=== PATIENT | male | born 1950 ===

== ENCOUNTER 2023-11-07 11:08 | Outpatient (OUT) | payer OTHER, SELFPAY ==
--- NOTE | 2023-11-07 | XR_ITS ---
[place] [id number] Patient Name: CYRUS RODRIGUEZ MRN: [id number] date: 1950 Sex: M Assigned Patient Location: [facility] Current Patient Location: [facility] Accession/Order Number: [id number] Exam Date: 11/07/2023 11:21 Report Date: 11/07/2023 12:25 At the request of: AUTUMN MENDIOLA Procedure: XR ankle LT min 3V EXAM: XR ankle LT min 3V HISTORY: LEFT ANKLE PAIN COMPARISON: None. TECHNIQUE: 3 views FINDINGS: No acute fracture or dislocation. Maintained ankle mortise. Minimal degenerative degenerative changes. Mild soft tissue swelling. XR/XR ankle LT min 3V IMPRESSION: Unremarkable exam. Electronically authenticated by: SUNNY ASHBY Date: 11/07/2023 12:25
== END 2023-11-07 11:09 | disposition home or self-care (01) ==
LOC: RAD 11:08
PROVIDERS: Visit Provider Podiatrist Foot & Ankle Surgery
DX: M19.072 Primary osteoarthritis, left ankle and foot (principal)
CPT/HCPCS: 73610

== ENCOUNTER 2023-11-26 16:01 | Outpatient (RCR) | payer OTHER, SELFPAY | END 2023-12-07 10:52 | disposition home or self-care (01) | LOC: PT 16:01 | PROVIDERS: Visit Provider Podiatrist Foot & Ankle Surgery | DX: M21.6X2 Other acquired deformities of left foot (principal); M77.32 Calcaneal spur, left foot; M76.62 Achilles tendinitis, left leg; M79.672 Pain in left foot | CPT/HCPCS: 97035; 97110; 97140; 97161 ==

== ENCOUNTER 2023-11-27 11:53 | Outpatient (OUT) | payer OTHER, SELFPAY ==
--- OUTSIDE RECORDS SUMMARY | 2023-11-27 12:01 | XMS_ITS | CCD ---
Author Name Unknown Address [address] [place] [address] Organization [facility] Care Team Providers Care Car Tracer Name Role Phone Mandy Dean Unavailable Unavailable Provider, None Unavailable Unavailable Madny Dean Unavailable Unavailable Kuns, Leroy Unavailable Kuns, DO Leroy Primary Care Provider [phone] Kuns, DO Leroy Attending Provider Kuns, DO Leroy Primary Care Provider [phone] Kuns, DO Leroy Attending Provider [phone] Kuns, DO Leroy Primary Care Provider Kuns, DO Leroy Attending Provider Kuns, Leroy Admitting Unavailable Kuns, Leroy Primary Care Unavailable Kuns, Leroy Attending Unavailable Kuns, Leroy Admitting Unavailable Kuns, Leroy Primary Care Unavailable Kuns, Leroy Attending Unavailable Kuns, Leroy Admitting Unavailable Kuns, Leroy Primary Care Unavailable Kuns, Leroy Attending Unavailable Kuns, Leroy Admitting Unavailable Kuns, Leroy Primary Care Unavailable Kuns, Leroy Attending Unavailable Kuns, Leroy Attending Unavailable Kuns, Leroy Admitting Unavailable Kuns, Leroy Primary Care Unavailable Allergies Allergy Classification Reported Allergen(s) Allergy Type Date of Onset Reaction(s) Facility (1 source) [place]; Translations: [[place]] Propensity to adverse reactions to drug (disorder) [facility] Repository Medications Current Medications Medication Drug Class(es) Dates Sig (Normalized) Sig (Original) atorvastatin 10 mg oral tablet (17 sources) HMG-CoA Reductase Inhibitor Start: 05-03-2020 take 1 tablet by mouth every twenty-four hours Atorvastatin Calcium 10 MG 1 tablet Orally Once a day Apr, Active Start: 05-03-2020 take 1 tablet by flaquito th every week Atorvastatin Calcium 10 MG 1 tablet Orally 2 days per week Apr, Active azithromycin 250 mg oral tablet (3 sources) Macrolide Antimicrobial Start: 12-18-2022 Zithromax Z-Anish 250 MG 2 tablets on the first day, then 1 tablet daily for 4 days Orally Once a day for 5 days Nov, Active brimonidine tartrate 2 mg/ml ophthalmic solution (6 sources) alpha-Adrenergic Agonist Start: 06-02-2019 take 1 drop(s) into the eye(s) twice daily Brimonidine Active 1 DROPS EYE-BOTH Twice daily June 01, 2019 11:00pm brimonidine tartrate 2 mg/ml / timolol 5 mg/ml ophthalmic solution (17 sources) alpha-Adrenergic Agonist, beta-Adrenergic Brennan take 1 drop(s) into the eye(s) twice daily Combigan 0.2-0.5 % 1 drop into affected eye Ophthalmic Twice a day Active cephalexin 500 mg oral capsule (1 source) Cephalosporin Antibacterial Start: 10-04-2023 take 1 capsule by mouth every eight hours Cephalexin 500 MG 1 capsule Orally TID for 10 days Sep, Active cetirizine hydrochloride 10 mg oral tablet (10 sources) Histamine-1 Receptor Antagonist take 1 tablet by mouth every twenty-four hours Cetirizine HCl 10 MG 1 tablet Orally Once a day Active ezetimibe 10 mg oral tablet (17 sources) Dietary Cholesterol Absorption Inhibitor Start: 08-26-2020 take 1 tablet by mouth every twenty-four hours Ezetimibe 10 MG 1 tablet Orally Once a day Aug, Active Start: 08-26-2020 take 1 tablet by [facility] two times weekly Ezetimibe 10 MG 1 tablet Orally 2 times per week Aug, Active fluticasone propionate 0.05 mg/actuat metered dose nasal spray (4 sources) Corticosteroid Start: 10-04-2022 take 1 spray(s) nasal route once daily Fluticasone Propionate 50 MCG/ACT 1 spray in each nostril Nasally Once a day for 30 day(s) Sep, Active gabapentin 300 mg oral capsule (15 sources) Anti-epileptic Agent Start: 12-29-2021 take 1 capsule by mouth at bedtime Gabapentin 300 MG 1 capsule Orally at bedtime for 90 days Dec, Active Start: 12-29-2021 take 1 capsule by mo [facility] once daily at bedtime Gabapentin 100 MG 1 capsule Orally QHS for 30 day(s) Dec, Active methylPREDNISolone 4 mg oral tablet (4 sources) Corticosteroid Start: 12-18-2022 methylPREDNISo lone 4 MG as directed Orally Nov, Active Start: 12-20-2021 Medrol 4 MG as directed Orally Dec, Active mupirocin 0.02 mg/mg topical ointment (1 source) RNA Synthetase Inhibitor Antibacterial Start: 10-04-2023 Mupirocin 2 % 1 application Externally Twice a day Sep, Active sulfamethoxazole 800 mg / trimethoprim 160 mg oral tablet (2 sources) Dihydrofolate Reductase Inhibitor Antibacterial, Sulfonamide Antimicrobial Start: 10-18-2023 take 1 tablet by mouth every twelve hours Bactrim DS 800-160 MG 1 tablet Orally BID for 10 days Sep, Active Start: 10-04-2023 take 1 tablet by flaquito every twelve hours Bactrim DS 800-160 MG 1 tablet Orally Twice a day for 10 days Sep, Active Timolol Maleate (6 sources) beta-Adrenergic Brennan Start: 06-02-2019 take 1 drop(s) into the eye(s) twice daily Timolol Maleate Active 1 DROPS EYE-BOTH Twice daily June 02, 2019 12:00am Start: 06-02-2019 take 1 drop(s) into the eye(s) twice daily Timolol Maleate Active 1 DROPS EYE-BOTH Twice daily June 01, 2019 11:00pm Completed/Discontinued Medications Medication Drug Class(es) Dates Sig (Normalized) Sig (Original) Toradol 30 mg/ml (20 sources) Start: 12-29-2021 Toradol 30 mg/ml Dec, 60 mg Start: 12-20-2021 Toradol 30 mg/ ml Dec, 2 mL Start: 09-27-2021 Toradol 30 mg/ ml Sep, 2 mL Problems Active Problems Problem Classification Problem Date Documented Da te Episodic/Chronic Disorders of lipid metabolism (20 sources) Hyperlipidemia; Translations: [Hyperlipidemia, unspecified] Onset: 09-27-2021 Resolved: 06-08-2022 Chronic Essential hypertension (8 sources) Hypertensive disorder; Translations: [Essential (primary) hypertension] Onset: 04-04-2023 Chronic Glaucoma (17 sources) Glaucoma; Translations: [Unspecified glaucoma] Chronic Immunizations and screening for infectious disease (9 sources) Needs influenza immunization; Translations: [Encounter for immunization] Episodic Open wounds of extremities (2 sources) Partial traumatic amputation of left foot, level unspecified, sequela; Translations: [Partial traumatic amputation of left foot, sequela] Chronic Open wounds of extremities (1 source) Unspecified open wound, unspecified foot, initial encounter Episodic Other circulatory disease (8 sources) Elevated blood pressure; Translations: [Elevated blood-pressure reading, without diagnosis of hypertension] Episodic Other circulatory disease (1 source) Elevated blood-pressure reading, without diagnosis of hypertension Episodic Other connective tissue disease (14 sources) Plantar fasciitis of right foot; Translations: [Plantar fascial fibromatosis] Episodic Other connective tissue disease (4 sources) Pain in right foot; Translations: [Pain in right foot] Episodic Other ear and sense organ disorders (15 sources) Bilateral tinnitus; Translations: [Tinnitus, bilateral] Episodic Other gastrointestinal disorders (6 sources) Stool DNA-based colorectal cancer screening positive; Translations: [Other fecal abnormalities] 06-05-2019 Episodic Other lower respiratory disease (2 sources) Cough; Translations: [Acute cough] Episodic Other non-traumatic joint disorders (15 sources) Multiple joint pain; Translations: [Pain in unspecified joint] Episodic Other non-traumatic joint disorders (2 sources) Ankle pain; Translations: [Pain in left ankle and joints of left foot] Episodic Other screening for suspected conditions (not mental disorders or infectious disease) (11 sources) Encounter for screening for malignant neoplasm of prostate; Translations: [Abnormal results of thyroid function studies] Onset: 09-27-2021 Resolved: 06-08-2022 Episodic Other upper respiratory disease (17 sources) Seasonal allergy; Translations: [Other seasonal allergic rhinitis] Chronic Other upper respiratory disease (3 sources) Other specified disorders of nose and nasal sinuses; Translations: [Other specified disorders of nose and nasal sinuses] Onset: 11-21-2023 Episodic Other upper respiratory disease (2 sources) Nasal sinus problem; Translations: [Other specified disorders of nose and nasal sinuses] Episodic Residual codes; unclassified (2 sources) Device used; Translations: [Presence of other specified devices] Episodic Spondylosis; intervertebral disc disorders; other back problems (20 sources) Lumbar spondylosis; Translations: [Spondylosis without myelopathy or radiculopathy, lumbar region] Onset: 09-27-2021 Resolved: 01-19-2022 Chronic Spondylosis; intervertebral disc disorders; other back problems (16 sources) Low back pain; Translations: [Lumbar back pain] Episodic Thyroid disorders (18 sources) Hypothyroidism; Translations: [Hypothyroidism, unspecified] Chronic Unclassified (1 source) Unspecified open wound, unspecified foot, initial encounter; Translations: [Unspecified open wound, unspecified foot, initial encounter] Onset: 10-04-2023 Past or Other Problems Problem Classification Problem Date Documented Da te Episodic/Chronic Diabetes mellitus without complication (1 source) Hyperglycemia, unspecified Onset: 09-27-2021 Resolved: 09-27-2021 Episodic Other connective tissue disease (1 source) Plantar fascial fibromatosis Onset: 12-20-2021 Resolved: 12-20-2021 Episodic Other connective tissue disease (2 sources) Pain in right foot Onset: 12-20-2021 Resolved: 12-29-2021 Episodic Other ear and sense organ disorders (1 source) Tinnitus, bilateral Onset: 12-29-2021 Resolved: 12-29-2021 Episodic Other non-traumatic joint disorders (2 sources) Pain in unspecified joint Onset: 12-29-2021 Resolved: 01-19-2022 Episodic Unclassified (7 sources) Lumbar back pain M54.50 Onset: 12-20-2021 Resolved: 06-08-2022 Unclassified (2 sources) Acute cough R05.1 Results Test Name Value Interpretation Reference Range Facility CT sinus wo conon 11-21-2023 CT sinus wo con [facility] [place] [address] CT Scan Report Signed Patient: Cyrus Rodriguez MR#: [id number] : 1950 Acct:[id number] Age/Sex: 72 / M ADM Date: 11/21/23 Loc: [facility] Room: Type: [facility] Attending Dr: Leroy Wray DO Copies to: Leroy Wray DO Ordering Provider: Leroy Wray DO Date of Service: 11/21/23 CT/CT sinus wo con: Sinus drainage CT PARANASAL SINUSES WITHOUT CONTRAST: CLINICAL HISTORY: Sinus drainage for years. COMPARISON: None TECHNIQUE: Contiguous axial unenhanced images were obtained through the paranasal sinuses. Coronal reconstructions were also performed. This CT exam was performed using one or more following dose reduction techniques: Automated exposure control, adjustment of the mA and/or kV according to patient size, or use of iterative reconstruction technique. FINDINGS: Frontal sinuses are absent. Ethmoid and sphenoid sinuses are clear. Minimal mucoperiosteal thickening involving the maxillary sinuses. Ostiomeatal complexes appear patent. No significant nasal septal deviation. No bony destruction is seen. Mastoid air cells are well pneumatized. No soft tissue swelling is seen. Intraorbital contents appear grossly unremarkable. Nasopharynx is grossly unremarkable. CT/CT sinus wo con IMPRESSION: MINIMAL MAXILLARY SINUS DISEASE. Impression dictated by: Camilo Dumas Jr., Ramila11/21/2023 11:21 AM Dictation Location: [place] [address] Transcribed By: [facility] 11/21/23 1121 Dictated By: Camilo Dumas Jr, DO 11/21/23 1120 Signed By: 11/21/23 1121 [facility] Bacterial blood cultureOrder ed By: Leroy Wray on 10-04-2023 Bacteria identified Cx Nom (Bld) NO GROWTH 5 DAYS [facility] Bacteria identified Cx Nom (Bld) NO GROWTH 5 DAYS [facility] Basophils Auto (Bld) [#/Vol] Ordered By: Leroy Wray on 10-04-2023 Basophils (Bld) [#/Vol] 0.0 10*3/uL 0.0-0.2 [facility] Basophils/100 WBC Auto (Bld) Ordered By: Lreoy Wray on 10-04-2023 Basophils/100 WBC (Bld) 0.7 % . [facility] Blood Cultureon 10-04-2023 Bacteria identified Cx Nom (Bld) Reason for Exam Wound of foot Blood Comment X 1 Reason for Exam: Wound of foot : Blood Comment: X 1 NO GROWTH 5 DAYS PERFORMED BY: [facility] [address] [place] [address] PATHOLOGIST SUPERVIS[employer] Y[employer] DARIO MILLER M.D. [facility] Comment on above: Performed By: #### C UBLD #### [facility] [address] Bacteria identified Cx Nom (Bld) Reason for Exam Wound of foot Blood Comment X 1 Reason for Exam: Wound of foot : Blood Comment: X 1 NO GROWTH 5 DAYS PERFORMED BY: [place] [address] PATHOLOGIST SUPERVIS[employer] Y[employer] DARIO MILLER M.D. Normal [facility] Comment on above: Performed By: #### C BC #### [facility] [address] [place] [address] COVID + FLU Quick Testingon 10-04-2023 SARS-CoV-2 (COVID-19) RNA JOLENE+probe Ql (Unsp spec) Negative [facility] [employer] Other COVID + FLU Quick Testing Negative [facility] [employer] Other Complete Blood Count Auto Di ffon 10-04-2023 Basophils (Bld) [#/Vol] 0.0 10*3/uL Normal 0.0-0.2 [facility] Comment on above: Order Comment: Reaso n for Exam Hyperlipidemia Result Comment: PERF ORMED BY: [place] [address] PATHOLOGIST SUPERVISOR [employer] Y[employer] DARIO MILLER M.D. Performed By: #### C BC #### [facility] [address] [place] [address] [place] Basophils/100 WBC (Bld) 0.7 % Normal . [facility] Comment on above: Order Comment: Reaso n for Exam Hyperlipidemia Performed By: #### C BC #### [facility] [address] [place] [address] [place] Eosinophils (Bld) [#/Vol] 0.3 10*3/uL Normal 0.0-0.45 [facility] Comment on above: Order Comment: Reaso n for Exam Hyperlipidemia Performed By: #### C BC #### [facility] [address] [place] [address] [place] Eosinophils/100 WBC (Bld) 4.4 % Normal . [facility] Comment on above: Order Comment: Reaso n for Exam Hyperlipidemia Performed By: #### C BC #### [address] Erythrocyte distribution width (RBC) [Ratio] 13.5 % Normal 12.0-14.8 [facility] Comment on above: Order Comment: Reaso n for Exam Hyperlipidemia Performed By: #### C BC #### [address] Hematocrit (Bld) [Volume fraction] 43.3 % Normal 38.8-50.0 [facility] Comment on above: Order Comment: Reaso n for Exam Hyperlipidemia Performed By: #### C BC #### [address] Hemoglobin (Bld) [Mass/Vol] 15.2 g/dL Normal 13.0-17.0 [facility] Comment on above: Order Comment: Reaso n for Exam Hyperlipidemia Performed By: #### C BC #### [address] Lymphocytes (Bld) [#/Vol] 1.8 10*3/uL Normal 1.00-4.8 [facility] Comment on above: Order Comment: Reaso n for Exam Hyperlipidemia Performed By: #### C BC #### [place] [address] [place] Lymphocytes/100 WBC (Bld) 25.3 % Normal . [facility] Comment on above: Order Comment: Reaso n for Exam Hyperlipidemia Performed By: #### C BC #### [place] [address] [place] MCH (RBC) [Entitic mass] 31.4 pg Normal 27.5-35.2 [facility] Comment on above: Order Comment: Reaso n for Exam Hyperlipidemia Performed By: #### C BC #### [address] MCV (RBC) [Entitic vol] 89.7 fL Normal 83.5-101 [facility] Comment on above: Order Comment: Reaso n for Exam Hyperlipidemia Performed By: #### C BC #### [address] Mean Corpuscular HGB Conc 35.1 g/dL Normal 32.5-35.6 [facility] Comment on above: Order Comment: Reaso n for Exam Hyperlipidemia Performed By: #### C BC #### [address] Monocytes (Bld) [#/Vol] 0.7 10*3/uL Normal 0.0-0.8 [facility] Comment on above: Order Comment: Reaso n for Exam Hyperlipidemia Performed By: #### C BC #### [address] Monocytes/100 WBC (Bld) 9.6 % Normal . [facility] Comment on above: Order Comment: Reaso n for Exam Hyperlipidemia Performed By: #### C BC #### [address] Neutrophils (Bld) [#/Vol] 4.2 10*3/uL Normal 1.8-7.7 [facility] Comment on above: Order Comment: Reaso n for Exam Hyperlipidemia Performed By: #### C BC #### [address] Neutrophils/100 WBC (Bld) 60.0 % Normal . [facility] Comment on above: Order Comment: Reaso n for Exam Hyperlipidemia Performed By: #### C BC #### [place] [address] [place] NRBC% 0.2 /100{WBC} Normal 0-0.5 [facility] Comment on above: Order Comment: Reaso n for Exam Hyperlipidemia Performed By: #### C BC #### [address] Platelet mean volume (Bld) [Entitic vol] 8.6 fL Normal 6.6-10.1 [facility] Comment on above: Order Comment: Reaso n for Exam Hyperlipidemia Performed By: #### C BC #### [address] Platelets (Bld) [#/Vol] 158 10*3/uL Normal 150-450 [facility] Comment on above: Order Comment: Reaso n for Exam Hyperlipidemia Performed By: #### C BC #### [facility] [address] RBC (Bld) [#/Vol] 4.83 10*6/uL Normal 3.90-5.60 [facility] Comment on above: Order Comment: Reaso n for Exam Hyperlipidemia Performed By: #### C BC #### [facility] [address] WBC (Bld) [#/Vol] 7.0 10*3/uL Normal 4.1-10.5 [facility] Comment on above: Order Comment: Reaso n for Exam Hyperlipidemia Performed By: #### C BC #### [facility] [address] Eosinophils Auto (Bld) [#/Vo l]Ordered By: Leroy Wray on 10-04-2023 Eosinophils (Bld) [#/Vol] 0.3 10*3/uL 0.0-0.45 [facility] Eosinophils/100 WBC Auto (Bl d)Ordered By: Leroy Wray on 10-04-2023 Eosinophils/100 WBC (Bld) 4.4 % . [facility] Erythrocyte distribution wid th Auto (RBC) [Ratio]Ordered By: Leroy Wray on 10-04-2023 Erythrocyte distribution width (RBC) [Ratio] 13.5 % 12.0-14.8 [facility] Hematocrit Auto (Bld) [Volum e fraction]Ordered By: Leroy Wray on 10-04-2023 Hematocrit (Bld) [Volume fraction] 43.3 % 38.8-50.0 [facility] Hemoglobin [Mass/volume] in BloodOrdered By: Leroy Wray on 10-04-2023 Hemoglobin (Bld) [Mass/Vol] 15.2 g/dL 13.0-17.0 [facility] Leukocytes [#/volume] correc navi for nucleated erythrocytes in Blood by Automated counOrdered By: Leroy Wray on 10-04-2023 WBC corrected for nucl RBC Auto (Bld) [#/Vol] 7.0 10*3/uL 4.1-10.5 [facility] Lymphocytes Auto (Bld) [#/Vo l]Ordered By: Leroy Wray on 10-04-2023 Lymphocytes (Bld) [#/Vol] 1.8 10*3/uL 1.00-4.8 [facility] Lymphocytes/100 WBC Auto (Bl d)Ordered By: Leroy Wray on 10-04-2023 Lymphocytes/100 WBC (Bld) 25.3 % . [facility] MCH Auto (RBC) [Entitic mass ]Ordered By: Leroy Wray on 10-04-2023 MCH (RBC) [Entitic mass] 31.4 pg 27.5-35.2 [facility] MCHC Auto (RBC) [Mass/Vol]Or dered By: Leroy Wray on 10-04-2023 MCHC (RBC) [Mass/Vol] 35.1 g/dL 32.5-35.6 [facility] MCV Auto (RBC) [Entitic vol] Ordered By: Leroy Wray on 10-04-2023 MCV (RBC) [Entitic vol] 89.7 fL 83.5-101 [facility] Monocytes Auto (Bld) [#/Vol] Ordered By: Leroy Wray on 10-04-2023 Monocytes (Bld) [#/Vol] 0.7 10*3/uL 0.0-0.8 [facility] Monocytes/100 WBC Auto (Bld) Ordered By: Leroy Wray on 10-04-2023 Monocytes/100 WBC (Bld) 9.6 % . [facility] Neutrophils Auto (Bld) [#/Vo l]Ordered By: Leroy Wray on 10-04-2023 Neutrophils (Bld) [#/Vol] 4.2 10*3/uL 1.8-7.7 [facility] Neutrophils/100 WBC Auto (Bl d)Ordered By: Leroy Wray on 10-04-2023 Neutrophils/100 WBC (Bld) 60.0 % . [facility] Nucleated erythrocytes [Pres ence] in Blood by Automated countOrdered By: Leroy Wray on 10-04-2023 Nucleated RBC Auto Ql (Bld) 0.2 /100{WBC} 0-0.5 [facility] Platelet mean volume Auto (B ld) [Entitic vol]Ordered By: Leroy Wray on 10-04-2023 Platelet mean volume (Bld) [Entitic vol] 8.6 fL 6.6-10.1 [facility] Platelets Auto (Bld) [#/Vol] Ordered By: Leroy Wray on 10-04-2023 Platelets (Bld) [#/Vol] 158 10*3/uL 150-450 [facility] RBC Auto (Bld) [#/Vol]Ordere d By: Leroy Wray on 10-04-2023 RBC (Bld) [#/Vol] 4.83 10*6/uL 3.90-5.60 [facility] RSVon 10-04-2023 RSV Ag IA Ql (Unsp spec) Negative [employer] Other WBC Auto (Bld) [#/Vol]Ordere d By: Leroy Wray on 10-04-2023 WBC (Bld) [#/Vol] 7.0 10*3/uL 4.1-10.5 [facility] Alanine aminotransferase [En zymatic activity/volume] in Serum or PlasmaOrdered By: Leroy Wray on 09-26-2023 ALT [Catalytic activity/Vol] 21 U/L 7-52 [facility] Albumin [Mass/volume] in Ser um or Plasma by Bromocresol green (BCG) dye binding methoOrdered By: Leroy Wray on 09-26-2023 Albumin BCG dye [Mass/Vol] 4.3 g/dL 3.5-5.7 [facility] Alkaline phosphatase [Enzyma tic activity/volume] in Serum or PlasmaOrdered By: Leroy Wray on 09-26-2023 ALP [Catalytic activity/Vol] 38 U/L 34-104 [facility] Aspartate aminotransferase [ Enzymatic activity/volume] in Serum or PlasmaOrdered By: Leroy Wray on 09-26-2023 AST [Catalytic activity/Vol] 15 U/L 13-39 [facility] Basophils Auto (Bld) [#/Vol] Ordered By: Leroy Wray on 09-26-2023 Basophils (Bld) [#/Vol] 0.1 10*3/uL 0.0-0.2 [facility] Basophils/100 WBC Auto (Bld) Ordered By: Leroy Wray on 09-26-2023 Basophils/100 WBC (Bld) 0.8 % . [facility] Bilirubin.total [Mass/volume ] in Serum or PlasmaOrdered By: Leroy Wray on 09-26-2023 Bilirubin [Mass/Vol] 0.8 mg/dL 0.3-1.0 [facility] Calcium [Mass/volume] in Ser um or PlasmaOrdered By: Leroy Wray on 09-26-2023 Calcium [Mass/Vol] 9.0 mg/dL 8.6-10.3 [facility] Carbon dioxide, total [Moles /volume] in Serum or PlasmaOrdered By: Leroy Wray on 09-26-2023 CO2 [Moles/Vol] 32.2 mmol/L 21.0-31.[address] [facility] Chloride [Moles/volume] in S adam or PlasmaOrdered By: Leroy Wray on 09-26-2023 Chloride [Moles/Vol] 109 mmol/L 98-107 [facility] Cholesterol [Mass/volume] in Serum or PlasmaOrdered By: Leroy Wray on 09-26-2023 Cholesterol [Mass/Vol] 185 mg/dL 140-200 [facility] Comment on above: Chol less than 200 m g/dl low riskChol 201-239 mg/dl borderline riskChol 240 mg/dl and greater high risk Cholesterol in LDL Calc [Mas s/Vol]Ordered By: Leroy Wray on 09-26-2023 Cholesterol in LDL [Mass/Vol] 122 mg/dL 0-100 [facility] Comment on above: LDL ATP III CLASSIFI CATIONLDL less than 100 mg/dL OptimalLDL 100-129 mg/dL Near or above optimalLDL 130-159 mg/dL Borderline highLDL 160-189 mg/dL HighLDL greater than 189 mg/dL Very high Cholesterol in VLDL Calc [Ma ss/Vol]Ordered By: Leroy Wray on 09-26-2023 Cholesterol in VLDL [Mass/Vol] 17 mg/dL [facility] Complete Blood Count Auto Di ffon 09-26-2023 Basophils (Bld) [#/Vol] 0.1 10*3/uL Normal 0.0-0.2 [facility] Comment on above: Order Comment: Reaso n for Exam Hyperlipidemia Result Comment: PERF ORMED BY: [place] [address] PATHOLOGIST SUPER[employer] DARIO MILLER M.D. Performed By: #### C BC #### [facility] [address] [place] [address] Basophils/100 WBC (Bld) 0.8 % Normal . [facility] Comment on above: Order Comment: Reaso n for Exam Hyperlipidemia Performed By: #### C BC #### [facility] [address] [place] [address] Eosinophils (Bld) [#/Vol] 0.3 10*3/uL Normal 0.0-0.45 [facility] Comment on above: Order Comment: Reaso n for Exam Hyperlipidemia Performed By: #### C BC #### [facility] [address] [place] [address] [place] Eosinophils/100 WBC (Bld) 4.2 % Normal . [facility] Comment on above: Order Comment: Reaso n for Exam Hyperlipidemia Performed By: #### C BC #### [facility] [address] [place] [address] [place] Erythrocyte distribution width (RBC) [Ratio] 13.7 % Normal 12.0-14.8 [facility] Comment on above: Order Comment: Reaso n for Exam Hyperlipidemia Performed By: #### C BC #### [facility] [address] [place] [address] [place] Hematocrit (Bld) [Volume fraction] 45.0 % Normal 38.8-50.0 [facility] Comment on above: Order Comment: Reaso n for Exam Hyperlipidemia Performed By: #### C BC #### [facility] [address] [place] [address] [place] Hemoglobin (Bld) [Mass/Vol] 15.6 g/dL Normal 13.0-17.0 [facility] Comment on above: Order Comment: Reaso n for Exam Hyperlipidemia Performed By: #### C BC #### [address] Lymphocytes (Bld) [#/Vol] 2.2 10*3/uL Normal 1.00-4.8 [facility] Comment on above: Order Comment: Reaso n for Exam Hyperlipidemia Performed By: #### C BC #### [address] Lymphocytes/100 WBC (Bld) 36.1 % Normal . [facility] Comment on above: Order Comment: Reaso n for Exam Hyperlipidemia Performed By: #### C BC #### [address] MCH (RBC) [Entitic mass] 31.4 pg Normal 27.5-35.2 [facility] Comment on above: Order Comment: Reaso n for Exam Hyperlipidemia Performed By: #### C BC #### [address] MCV (RBC) [Entitic vol] 90.7 fL Normal 83.5-101 [facility] Comment on above: Order Comment: Reaso n for Exam Hyperlipidemia Performed By: #### C BC #### [address] Mean Corpuscular HGB Conc 34.6 g/dL Normal 32.5-35.6 [facility] Comment on above: Order Comment: Reaso n for Exam Hyperlipidemia Performed By: #### C BC #### [address] Monocytes (Bld) [#/Vol] 0.5 10*3/uL Normal 0.0-0.8 [facility] Comment on above: Order Comment: Reaso n for Exam Hyperlipidemia Performed By: #### C BC #### [address] Monocytes/100 WBC (Bld) 7.5 % Normal . [facility] Comment on above: Order Comment: Reaso n for Exam Hyperlipidemia Performed By: #### C BC #### [facility] [address] [place] [address] [place] Neutrophils (Bld) [#/Vol] 3.1 10*3/uL Normal 1.8-7.7 [facility] Comment on above: Order Comment: Reaso n for Exam Hyperlipidemia Performed By: #### C BC #### [facility] [address] [place] [address] [place] Neutrophils/100 WBC (Bld) 51.4 % Normal . [facility] Comment on above: Order Comment: Reaso n for Exam Hyperlipidemia Performed By: #### C BC #### [facility] [address] NRBC% 0.2 /100{WBC} Normal 0-0.5 [facility] Comment on above: Order Comment: Reaso n for Exam Hyperlipidemia Performed By: #### C BC #### [address] Platelet mean volume (Bld) [Entitic vol] 8.7 fL Normal 6.6-10.1 [facility] Comment on above: Order Comment: Reaso n for Exam Hyperlipidemia Performed By: #### C BC #### [place] [address] [place] Platelets (Bld) [#/Vol] 170 10*3/uL Normal 150-450 [facility] Comment on above: Order Comment: Reaso n for Exam Hyperlipidemia Performed By: #### C BC #### [place] [address] [place] RBC (Bld) [#/Vol] 4.97 10*6/uL Normal 3.90-5.60 [facility] Comment on above: Order Comment: Reaso n for Exam Hyperlipidemia Performed By: #### C BC #### [address] WBC (Bld) [#/Vol] 6.0 10*3/uL Normal 4.1-10.5 [facility] Comment on above: Order Comment: Reaso n for Exam Hyperlipidemia Performed By: #### C BC #### [facility] [address] Comprehensive Metabolic Pane igor 09-26-2023 Albumin [Mass/Vol] 4.3 g/dL Normal 3.5-5.7 [facility] Comment on above: Order Comment: Reaso n for Exam Hyperlipidemia Performed By: #### T SH3, LIPID, CMP #### [facility] [address] [place] [address] Albumin/Globulin [Mass ratio] 2.0 {ratio} Normal [facility] Comment on above: Order Comment: Reaso n for Exam Hyperlipidemia Performed By: #### T SH3, LIPID, CMP #### [facility] [address] [place] [address] ALP [Catalytic activity/Vol] 38 U/L Normal 34-104 [facility] Comment on above: Order Comment: Reaso n for Exam Hyperlipidemia Performed By: #### T SH3, LIPID, CMP #### [facility] [address] [place] [address] ALT [Catalytic activity/Vol] 21 U/L Normal 7-52 [facility] Comment on above: Order Comment: Reaso n for Exam Hyperlipidemia Performed By: #### T SH3, LIPID, CMP #### [facility] [address] [place] [address] Anion gap [Moles/Vol] 8.8 mmol/L Normal 6.0-15.0 [facility] Comment on above: Order Comment: Reaso n for Exam Hyperlipidemia Performed By: #### T SH3, LIPID, CMP #### [facility] [address] [place] [address] AST [Catalytic activity/Vol] 15 U/L Normal 13-39 [facility] Comment on above: Order Comment: Reaso n for Exam Hyperlipidemia Performed By: #### T SH3, LIPID, CMP #### [facility] [address] [place] [address] Bilirubin [Mass/Vol] 0.8 mg/dL Normal 0.3-1.0 [facility] Comment on above: Order Comment: Reaso n for Exam Hyperlipidemia Performed By: #### T SH3, LIPID, CMP #### [facility] [address] [place] [id number] [place] Calcium [Mass/Vol] 9.0 mg/dL Normal 8.6-10.3 [facility] Comment on above: Order Comment: Reaso n for Exam Hyperlipidemia Performed By: #### T SH3, LIPID, CMP #### [facility] [address] [place] [address] [place] Chloride [Moles/Vol] 109 mmol/L High 98-107 [facility] Comment on above: Order Comment: Reaso n for Exam Hyperlipidemia Performed By: #### T SH3, LIPID, CMP #### [facility] [address] [place] [address] [place] CO2 [Moles/Vol] 32.2 mmol/L High 21.0-31.[address] [facility] Comment on above: Order Comment: Reaso n for Exam Hyperlipidemia Performed By: #### T SH3, LIPID, CMP #### [facility] [address] Creatinine [Mass/Vol] 0.94 mg/dL Normal 0.70-1.30 [facility] Comment on above: Order Comment: Reaso n for Exam Hyperlipidemia Performed By: #### T SH3, LIPID, CMP #### [facility] [address] [place] [address] [place] GFR/1.73 sq M.predicted MDRD (S/P/Bld) [Vol rate/Area] mL/min/{1.73_m2} [facility] Comment on above: Order Comment: Reaso n for Exam Hyperlipidemia Performed By: #### T SH3, LIPID, CMP #### [facility] [address] [place] [address] [place] Globulin (S) [Mass/Vol] 2.2 g/dL [facility] Comment on above: Order Comment: Reaso n for Exam Hyperlipidemia Performed By: #### T SH3, LIPID, CMP #### [facility] [address] [place] [address] [place] Glucose [Mass/Vol] 101 mg/dL High 70-100 [facility] Comment on above: Order Comment: Reaso n for Exam Hyperlipidemia Result Comment: [facility] Glucose Reference Range is dependent on time and content of last meal. Glucose of more than 200 mg/dL in a nonstressed, ambulatory subject supports the diagnosis of Diabetes Mellitus. ADA recommended reference range Performed By: #### T SH3, LIPID, CMP #### [facility] [address] Potassium [Moles/Vol] 4.0 mmol/L Normal 3.5-5.1 [facility] Comment on above: Order Comment: Reaso n for Exam Hyperlipidemia Performed By: #### T SH3, LIPID, CMP #### [facility] [address] Protein [Mass/Vol] 6.5 g/dL Normal 6.4-8.9 [facility] Comment on above: Order Comment: Reaso n for Exam Hyperlipidemia Performed By: #### T SH3, LIPID, CMP #### [facility] [address] [place] [address] [place] Sodium [Moles/Vol] 146 mmol/L High 136-145 [facility] Comment on above: Order Comment: Reaso n for Exam Hyperlipidemia Performed By: #### T SH3, LIPID, CMP #### [facility] [address] Urea nitrogen [Mass/Vol] 13 mg/dL Normal 7-25 [facility] Comment on above: Order Comment: Reaso n for Exam Hyperlipidemia Performed By: #### T SH3, LIPID, CMP #### [facility] [address] [place] [address] [place] Creatinine [Mass/volume] in Serum or PlasmaOrdered By: Leroy Wray on 09-26-2023 Creatinine [Mass/Vol] 0.94 mg/dL 0.70-1.30 [facility] Eosinophils Auto (Bld) [#/Vo l]Ordered By: Leroy Wray on 09-26-2023 Eosinophils (Bld) [#/Vol] 0.3 10*3/uL 0.0-0.45 [facility] Eosinophils/100 WBC Auto (Bl d)Ordered By: Leroy Wray on 09-26-2023 Eosinophils/100 WBC (Bld) 4.2 % . [facility] Erythrocyte distribution wid th Auto (RBC) [Ratio]Ordered By: Leroy Wray on 09-26-2023 Erythrocyte distribution width (RBC) [Ratio] 13.7 % 12.0-14.8 [facility] Globulin Calc (S) [Mass/Vol] Ordered By: Leroy Wray on 09-26-2023 Globulin (S) [Mass/Vol] 2.2 g/dL [facility] Glucose [Mass/volume] in Ser um or PlasmaOrdered By: Leroy Wray on 09-26-2023 Glucose [Mass/Vol] 101 mg/dL 70-100 [facility] Comment on above: ADA recommended refe rence rangeRandom Glucose Reference Range is dependent on time and content of last meal. Glucose of more than 200 mg/dL in a nonstressed, ambulatory subject supports the diagnosis of Diabetes Mellitus. Hematocrit Auto (Bld) [Volum e fraction]Ordered By: Leroy Wray on 09-26-2023 Hematocrit (Bld) [Volume fraction] 45.0 % 38.8-50.0 [facility] Hemoglobin [Mass/volume] in BloodOrdered By: Leroy Wray on 09-26-2023 Hemoglobin (Bld) [Mass/Vol] 15.6 g/dL 13.0-17.0 [facility] Leukocytes [#/volume] correc navi for nucleated erythrocytes in Blood by Automated counOrdered By: Leroy Wray on 09-26-2023 WBC corrected for nucl RBC Auto (Bld) [#/Vol] 6.0 10*3/uL 4.1-10.5 [facility] Lipid Panelon 09-26-2023 Cholesterol [Mass/Vol] 185 mg/dL Normal 140-200 [facility] Comment on above: Order Comment: Reaso n for Exam Hyperlipidemia Result Comment: Chol less than 200 mg/dl low risk Chol 201-239 mg/dl borderline risk Chol 240 mg/dl and greater high risk Performed By: #### T SH3, LIPID, CMP #### [facility] [address] Cholesterol in HDL [Mass/Vol] 45 mg/dL Normal 23-92 [facility] Comment on above: Order Comment: Reaso n for Exam Hyperlipidemia Result Comment: HDL CHOL ATP-III CLASSIFICATION Cardiovascular Risk HDL > or equal to 60 mg/dL LOW HDL < 40 mg/dL HIGH Performed By: #### T SH3, LIPID, CMP #### [facility] [address] [place] [id number] [facility] Cholesterol.total/Cho lesterol in HDL [Mass ratio] 4.1 {ratio} Normal <5.0 [facility] Comment on above: Order Comment: Reaso n for Exam Hyperlipidemia Performed By: #### T SH3, LIPID, CMP #### [facility] [address] LDL Cholesterol,Calculate d 122 mg/dL High 0-100 [facility] Comment on above: Order Comment: Reaso n for Exam Hyperlipidemia Result Comment: LDL ATP III CLASSIFICATION LDL less than 100 mg/dL Optimal LDL 100-129 mg/dL Near or above optimal LDL 130-159 mg/dL Borderline high LDL 160-189 mg/dL High LDL greater than 189 mg/dL Very high Performed By: #### T SH3, LIPID, CMP #### [facility] [address] Triglyceride w/Reflex 88 mg/dL Normal 0-149 [facility] Comment on above: Order Comment: Reaso n for Exam Hyperlipidemia Result Comment: TRIG ATP III CLASSIFICATION TRIG less than 150 mg/dL Normal TRIG 150-199 mg/dL Borderline high TRIG 200-500 mg/dL High TRIG greater than 500 mg/dL Very high Standard traceable to the Center for Disease Conrtrol and Prevention (CDC) test method. Performed By: #### T SH3, LIPID, CMP #### [facility] [address] VLDL CHOLESTEROL 17 mg/dL Normal [facility] Comment on above: Order Comment: Reaso n for Exam Hyperlipidemia Performed By: #### T SH3, LIPID, CMP #### [facility] [address] [place] [id number] [place] Lymphocytes Auto (Bld) [#/Vo l]Ordered By: Leroy Wray on 09-26-2023 Lymphocytes (Bld) [#/Vol] 2.2 10*3/uL 1.00-4.8 [facility] Lymphocytes/100 WBC Auto (Bl d)Ordered By: Leroy Wray on 09-26-2023 Lymphocytes/100 WBC (Bld) 36.1 % . [facility] MCH Auto (RBC) [Entitic mass ]Ordered By: Leroy Wray on 09-26-2023 MCH (RBC) [Entitic mass] 31.4 pg 27.5-35.2 [facility] MCHC Auto (RBC) [Mass/Vol]Or dered By: Leroy Wray on 09-26-2023 MCHC (RBC) [Mass/Vol] 34.6 g/dL 32.5-35.6 [facility] MCV Auto (RBC) [Entitic vol] Ordered By: Leroy Wray on 09-26-2023 MCV (RBC) [Entitic vol] 90.7 fL 83.5-101 [facility] Monocytes Auto (Bld) [#/Vol] Ordered By: Leroy Wray on 09-26-2023 Monocytes (Bld) [#/Vol] 0.5 10*3/uL 0.0-0.8 [facility] Monocytes/100 WBC Auto (Bld) Ordered By: Leroy Wray on 09-26-2023 Monocytes/100 WBC (Bld) 7.5 % . [facility] Neutrophils Auto (Bld) [#/Vo l]Ordered By: Leroy Wray on 09-26-2023 Neutrophils (Bld) [#/Vol] 3.1 10*3/uL 1.8-7.7 [facility] Neutrophils/100 WBC Auto (Bl d)Ordered By: Leroy Wray on 09-26-2023 Neutrophils/100 WBC (Bld) 51.4 % . [facility] No Panel InformationOrdered By: Leroy Wray on 09-26-2023 Estimated GFR (CKD-EPI) > 60.0 mL/Min [facility] Creatinine Clearance (Chem N/A [facility] Nucleated erythrocytes [Pres ence] in Blood by Automated countOrdered By: Leroy Wray on 09-26-2023 Nucleated RBC Auto Ql (Bld) 0.2 /100{WBC} 0-0.5 [facility] PSA Screen (Yearly Only)on 1 11-27-2022 PSA Screen (Yearly Only) 0.110 ng/mL Normal 0.000-4.00 0 [facility] Comment on above: Order Comment: Reaso n for Exam Screening for prostate cancer Is patient <50 yrs? Medicare does not pay <50.: N What is the date of the last PSA Screen?: 594012 Is Medicare the insurance?: Y Did you verify eligibility (Dx Time) check TestViewGp: YES TO ALL Result Comment: PERF ORMED BY: [place] [address] PATHOLOGIST [employer] DARIO MILLER M.D. Performed By: #### P SAS #### [address] Platelet mean volume Auto (B ld) [Entitic vol]Ordered By: Leroy Wray on 09-26-2023 Platelet mean volume (Bld) [Entitic vol] 8.7 fL 6.6-10.1 [facility] Platelets Auto (Bld) [#/Vol] Ordered By: Leroy Wray on 09-26-2023 Platelets (Bld) [#/Vol] 170 10*3/uL 150-450 [facility] Potassium [Moles/volume] in Serum or PlasmaOrdered By: Leroy Wray on 09-26-2023 Potassium [Moles/Vol] 4.0 mmol/L 3.5-5.1 [facility] Prostate specific Ag [Mass/v olume] in Serum or PlasmaOrdered By: Leroy Wray on 09-26-2023 Prostate specific Ag [Mass/Vol] 0.110 ng/mL 0.000-4.00 0 [facility] Protein [Mass/volume] in Ser um or PlasmaOrdered By: Leroy Wray on 09-26-2023 Protein [Mass/Vol] 6.5 g/dL 6.4-8.9 [facility] RBC Auto (Bld) [#/Vol]Ordere d By: Leroy Wray on 09-26-2023 RBC (Bld) [#/Vol] 4.97 10*6/uL 3.90-5.60 [facility] Serum or plasma albumin/glob ulin mass ratioOrdered By: Leroy Wray on 09-26-2023 Albumin/Globulin [Mass ratio] 2.0 {ratio} [facility] Serum or plasma anion gap de terminationOrdered By: Leroy Wray on 09-26-2023 Anion gap [Moles/Vol] 8.8 mmol/L 6.0-15.0 [facility] Serum or plasma high density lipoprotein (HDL) cholesterol measurementOrdered By: Leroy Wray on 09-26-2023 Cholesterol in HDL [Mass/Vol] 45 mg/dL 23-92 [facility] Comment on above: HDL CHOL ATP-III CLA SSIFICATION Cardiovascular RiskHDL > or equal to 60 mg/dL LOWHDL < 40 mg/dL HIGH Serum or plasma total choles terol/high density lipoprotein (HDL) cholesterol mass ratOrdered By: Leroy Wray on 09-26-2023 Cholesterol.total/Cho lesterol in HDL [Mass ratio] 4.1 {ratio} <5.0 [facility] Sodium [Moles/volume] in Ser um or PlasmaOrdered By: Leroy Wray on 09-26-2023 Sodium [Moles/Vol] 146 mmol/L 136-145 [facility] Thyroid Stimulating Hormoneo n 09-26-2023 TSH Qn 5.69 m[IU]/L High 0.45-5.33 [facility] Comment on above: Order Comment: Reaso n for Exam Hyperlipidemia Result Comment: PERF ORMED BY: [place] [address] PATHOLOGIST [employer] D[employer] MILLER M.D. Performed By: #### T SH3, LIPID, CMP #### [address] Thyrotropin [Units/volume] i n Serum or PlasmaOrdered By: Leroy Wray on 09-26-2023 TSH Qn 5.69 m[IU]/L 0.45-5.33 [facility] Triglyceride [Mass/volume] i n Serum or PlasmaOrdered By: Leroy Wray on 09-26-2023 Triglyceride [Mass/Vol] 88 mg/dL 0-149 [facility] Comment on above: TRIG ATP III CLASSIF ICATIONTRIG less than 150 mg/dL NormalTRIG 150-199 mg/dL Borderline highTRIG 200-500 mg/dL High TRIG greater than 500 mg/dL Very highStandard traceable to the Center for Disease Conrtrol and Prevention (CDC) test method. Urea nitrogen [Mass/volume] in Serum or PlasmaOrdered By: Leroy Wray on 09-26-2023 Urea nitrogen [Mass/Vol] 13 mg/dL 7-25 [facility] WBC Auto (Bld) [#/Vol]Ordere d By: Leroy Wray on 09-26-2023 WBC (Bld) [#/Vol] 6.0 10*3/uL 4.1-10.5 [facility] Thyroid Antibodies TPO+Tg Ab on 04-04-2023 Antithyroglobulin Ab <1.0 Normal 0.0-0.9 [facility] Comment on above: Order Comment: Reaso n for Exam Hypertension, unspecified type Result Comment: Thyr oglobulin Antibody measured by [employer] Methodology Performed at: [employer] [facility] [address] [id number] Saw Boss: Ashok Leahy PhD, Phone: [phone] PERFORMED BY: [place] [address] PATHOLOGIST SUPER[employer] D[employer] MILLER M.D. Performed By: #### T HY AB #### [facility] , #### TSH3 #### [facility] [address] [place] [address] Thyroid Peroxidase Antibodies <9 Normal 0-34 [facility] Comment on above: Order Comment: Reaso n for Exam Hypertension, unspecified type Performed By: #### T HY AB #### [facility] , #### TSH3 #### [facility] [address] [place] [address] Thyroid Stimulating Hormoneo n 04-04-2023 TSH Qn 4.43 m[IU]/L Normal 0.45-5.33 [facility] Comment on above: Order Comment: Reaso n for Exam Hypertension, unspecified type Result Comment: PERF ORMED BY: [facility] [address] [place] [address] PATHOLOGIST SUPER[employer] DARIO MILLER M.D. Performed By: #### T HY AB #### [facility] , #### TSH3 #### [address] Thyrotropin [Units/volume] i n Serum or PlasmaOrdered By: Leroy Wray on 04-04-2023 TSH Qn 4.43 m[IU]/L 0.45-5.33 [facility] Alanine aminotransferase [En zymatic activity/volume] in Serum or PlasmaOrdered By: Leroy Wray on 03-26-2023 ALT [Catalytic activity/Vol] 26 U/L 7-52 [facility] Albumin [Mass/volume] in Ser um or Plasma by Bromocresol green (BCG) dye binding methoOrdered By: Leroy Wray on 03-26-2023 Albumin BCG dye [Mass/Vol] 4.2 g/dL 3.5-5.7 [facility] Alkaline phosphatase [Enzyma tic activity/volume] in Serum or PlasmaOrdered By: Leroy Wray on 03-26-2023 ALP [Catalytic activity/Vol] 41 U/L 34-104 [facility] Aspartate aminotransferase [ Enzymatic activity/volume] in Serum or PlasmaOrdered By: Leroy Wray on 03-26-2023 AST [Catalytic activity/Vol] 16 U/L 13-39 [facility] Basophils Auto (Bld) [#/Vol] Ordered By: Leroy Wray on 03-26-2023 Basophils (Bld) [#/Vol] 0.0 10*3/uL 0.0-0.2 [facility] Basophils/100 WBC Auto (Bld) Ordered By: Leroy Wray on 03-26-2023 Basophils/100 WBC (Bld) 0.8 % . [facility] Bilirubin.total [Mass/volume ] in Serum or PlasmaOrdered By: Leroy Wray on 03-26-2023 Bilirubin [Mass/Vol] 0.9 mg/dL 0.3-1.0 [facility] Calcium [Mass/volume] in Ser um or PlasmaOrdered By: Leroy Wray on 03-26-2023 Calcium [Mass/Vol] 8.5 mg/dL 8.6-10.3 [facility] Carbon dioxide, total [Moles /volume] in Serum or PlasmaOrdered By: Leroy Wary on 03-26-2023 CO2 [Moles/Vol] 32.1 mmol/L 21.0-31.[address] [facility] Chloride [Moles/volume] in S adam or PlasmaOrdered By: Leroy Wray on 03-26-2023 Chloride [Moles/Vol] 107 mmol/L 98-107 [facility] Cholesterol [Mass/volume] in Serum or PlasmaOrdered By: Leroy Wray on 03-26-2023 Cholesterol [Mass/Vol] 179 mg/dL 140-200 [facility] Comment on above: Chol less than 200 m g/dl low riskChol 201-239 mg/dl borderline riskChol 240 mg/dl and greater high risk Cholesterol in LDL Calc [Mas s/Vol]Ordered By: Leroy Wray on 03-26-2023 Cholesterol in LDL [Mass/Vol] 118 mg/dL 0-100 [facility] Comment on above: LDL ATP III CLASSIFI CATIONLDL less than 100 mg/dL OptimalLDL 100-129 mg/dL Near or above optimalLDL 130-159 mg/dL Borderline highLDL 160-189 mg/dL HighLDL greater than 189 mg/dL Very high Cholesterol in VLDL Calc [Ma ss/Vol]Ordered By: Leroy Wray on 03-26-2023 Cholesterol in VLDL [Mass/Vol] 24 mg/dL [facility] Complete Blood Count Auto Di ffon 03-26-2023 Basophils (Bld) [#/Vol] 0.0 10*3/uL Normal 0.0-0.2 [facility] Comment on above: Order Comment: Reaso n for Exam Hyperlipidemia Result Comment: PERF ORMED BY: [place] [address] PATHOLOGIST SUPER[employer] DARIO MILLER M.D. Performed By: #### C BC #### [facility] [address] [place] [address] [place] Basophils/100 WBC (Bld) 0.8 % Normal . [facility] Comment on above: Order Comment: Reaso n for Exam Hyperlipidemia Performed By: #### C BC #### [facility] [address] Eosinophils (Bld) [#/Vol] 0.2 10*3/uL Normal 0.0-0.45 [facility] Comment on above: Order Comment: Reaso n for Exam Hyperlipidemia Performed By: #### C BC #### [facility] [address] [place] [address] [place] Eosinophils/100 WBC (Bld) 3.3 % Normal . [facility] Comment on above: Order Comment: Reaso n for Exam Hyperlipidemia Performed By: #### C BC #### [facility] [address] Erythrocyte distribution width (RBC) [Ratio] 13.9 % Normal 12.0-14.8 [facility] Comment on above: Order Comment: Reaso n for Exam Hyperlipidemia Performed By: #### C BC #### [facility] [address] [place] [address] [place] Hematocrit (Bld) [Volume fraction] 44.6 % Normal 38.8-50.0 [facility] Comment on above: Order Comment: Reaso n for Exam Hyperlipidemia Performed By: #### C BC #### [facility] [address] [place] [id number] [place] Hemoglobin (Bld) [Mass/Vol] 15.2 g/dL Normal 13.0-17.0 [facility] Comment on above: Order Comment: Reaso n for Exam Hyperlipidemia Performed By: #### C BC #### [facility] [address] [place] [id number] [place] Lymphocytes (Bld) [#/Vol] 2.5 10*3/uL Normal 1.00-4.8 [facility] Comment on above: Order Comment: Reaso n for Exam Hyperlipidemia Performed By: #### C BC #### [facility] [address] [place] [id number] [place] Lymphocytes/100 WBC (Bld) 41.4 % Normal . [facility] Comment on above: Order Comment: Reaso n for Exam Hyperlipidemia Performed By: #### C BC #### [address] MCH (RBC) [Entitic mass] 31.3 pg Normal 27.5-35.2 [facility] Comment on above: Order Comment: Reaso n for Exam Hyperlipidemia Performed By: #### C BC #### [address] MCV (RBC) [Entitic vol] 91.3 fL Normal 83.5-101 [facility] Comment on above: Order Comment: Reaso n for Exam Hyperlipidemia Performed By: #### C BC #### [address] Mean Corpuscular HGB Conc 34.2 g/dL Normal 32.5-35.6 [facility] Comment on above: Order Comment: Reaso n for Exam Hyperlipidemia Performed By: #### C BC #### [address] Monocytes (Bld) [#/Vol] 0.4 10*3/uL Normal 0.0-0.8 [facility] Comment on above: Order Comment: Reaso n for Exam Hyperlipidemia Performed By: #### C BC #### [address] Monocytes/100 WBC (Bld) 7.3 % Normal . [facility] Comment on above: Order Comment: Reaso n for Exam Hyperlipidemia Performed By: #### C BC #### [place] [address] [place] Neutrophils (Bld) [#/Vol] 2.9 10*3/uL Normal 1.8-7.7 [facility] Comment on above: Order Comment: Reaso n for Exam Hyperlipidemia Performed By: #### C BC #### [place] [address] [place] Neutrophils/100 WBC (Bld) 47.2 % Normal . [facility] Comment on above: Order Comment: Reaso n for Exam Hyperlipidemia Performed By: #### C BC #### [facility] [address] NRBC% 0.3 /100{WBC} Normal 0-0.5 [facility] Comment on above: Order Comment: Reaso n for Exam Hyperlipidemia Performed By: #### C BC #### [address] Platelet mean volume (Bld) [Entitic vol] 8.4 fL Normal 6.6-10.1 [facility] Comment on above: Order Comment: Reaso n for Exam Hyperlipidemia Performed By: #### C BC #### [address] Platelets (Bld) [#/Vol] 160 10*3/uL Normal 150-450 [facility] Comment on above: Order Comment: Reaso n for Exam Hyperlipidemia Performed By: #### C BC #### [address] RBC (Bld) [#/Vol] 4.88 10*6/uL Normal 3.90-5.60 [facility] Comment on above: Order Comment: Reaso n for Exam Hyperlipidemia Performed By: #### C BC #### [address] WBC (Bld) [#/Vol] 6.1 10*3/uL Normal 4.1-10.5 [facility] Comment on above: Order Comment: Reaso n for Exam Hyperlipidemia Performed By: #### C BC #### [address] Comprehensive Metabolic Pane igor 03-26-2023 Albumin [Mass/Vol] 4.2 g/dL Normal 3.5-5.7 [facility] Comment on above: Order Comment: Reaso n for Exam Hyperlipidemia Performed By: #### C BC #### [address] Albumin/Globulin [Mass ratio] 2.0 {ratio} Normal [facility] Comment on above: Order Comment: Reaso n for Exam Hyperlipidemia Performed By: #### C BC #### [facility] [address] [place] [id number] [facility] ALP [Catalytic activity/Vol] 41 U/L Normal 34-104 [facility] Comment on above: Order Comment: Reaso n for Exam Hyperlipidemia Performed By: #### C BC #### [facility] [address] [place] [id number] [facility] ALT [Catalytic activity/Vol] 26 U/L Normal 7-52 [facility] Comment on above: Order Comment: Reaso n for Exam Hyperlipidemia Performed By: #### C BC #### [facility] [address] Anion gap [Moles/Vol] 8.7 mmol/L Normal 6.0-15.0 [facility] Comment on above: Order Comment: Reaso n for Exam Hyperlipidemia Performed By: #### C BC #### [facility] [address] AST [Catalytic activity/Vol] 16 U/L Normal 13-39 [facility] Comment on above: Order Comment: Reaso n for Exam Hyperlipidemia Performed By: #### C BC #### [facility] [address] [place] [address] [place] Bilirubin [Mass/Vol] 0.9 mg/dL Normal 0.3-1.0 [facility] Comment on above: Order Comment: Reaso n for Exam Hyperlipidemia Performed By: #### C BC #### [facility] [address] [place] [id number] [place] Calcium [Mass/Vol] 8.5 mg/dL Low 8.6-10.3 [facility] Comment on above: Order Comment: Reaso n for Exam Hyperlipidemia Performed By: #### C BC #### [facility] [address] [place] [id number] [place] Chloride [Moles/Vol] 107 mmol/L Normal 98-107 [facility] Comment on above: Order Comment: Reaso n for Exam Hyperlipidemia Performed By: #### C BC #### [facility] [address] [place] [address] [place] CO2 [Moles/Vol] 32.1 mmol/L High 21.0-31.[address] [facility] Comment on above: Order Comment: Reaso n for Exam Hyperlipidemia Performed By: #### C BC #### [facility] [address] Creatinine [Mass/Vol] 0.81 mg/dL Normal 0.70-1.30 [facility] Comment on above: Order Comment: Reaso n for Exam Hyperlipidemia Performed By: #### C BC #### [place] [address] [place] GFR/1.73 sq M.predicted MDRD (S/P/Bld) [Vol rate/Area] mL/min/{1.73_m2} [facility] Comment on above: Order Comment: Reaso n for Exam Hyperlipidemia Performed By: #### C BC #### [address] Globulin (S) [Mass/Vol] 2.1 g/dL [facility] Comment on above: Order Comment: Reaso n for Exam Hyperlipidemia Performed By: #### C BC #### [address] Glucose [Mass/Vol] 96 mg/dL Normal 70-100 [facility] Comment on above: Order Comment: Reaso n for Exam Hyperlipidemia Result Comment: [place] Glucose Reference Range is dependent on time and content of last meal. Glucose of more than 200 mg/dL in a nonstressed, ambulatory subject supports the diagnosis of Diabetes Mellitus. ADA recommended reference range Performed By: #### C BC #### [facility] [address] [place] [address] [place] Potassium [Moles/Vol] 3.8 mmol/L Normal 3.5-5.1 [facility] Comment on above: Order Comment: Reaso n for Exam Hyperlipidemia Performed By: #### C BC #### [place] [address] [place] Protein [Mass/Vol] 6.3 g/dL Low 6.4-8.9 [facility] Comment on above: Order Comment: Reaso n for Exam Hyperlipidemia Performed By: #### C BC #### [facility] [address] [place] [id number] [place] Sodium [Moles/Vol] 144 mmol/L Normal 136-145 [facility] Comment on above: Order Comment: Reaso n for Exam Hyperlipidemia Performed By: #### C BC #### [facility] [address] [place] [id number] [place] Urea nitrogen [Mass/Vol] 18 mg/dL Normal 7-25 [facility] Comment on above: Order Comment: Reaso n for Exam Hyperlipidemia Performed By: #### C BC #### [facility] [address] [place] [id number] [place] Creatinine [Mass/volume] in Serum or PlasmaOrdered By: Leroy Wray on 03-26-2023 Creatinine [Mass/Vol] 0.81 mg/dL 0.70-1.30 [facility] Eosinophils Auto (Bld) [#/Vo l]Ordered By: Leroy Wray on 03-26-2023 Eosinophils (Bld) [#/Vol] 0.2 10*3/uL 0.0-0.45 [facility] Eosinophils/100 WBC Auto (Bl d)Ordered By: Leroy Wray on 03-26-2023 Eosinophils/100 WBC (Bld) 3.3 % . [facility] Erythrocyte distribution wid th Auto (RBC) [Ratio]Ordered By: Leroy Wray on 03-26-2023 Erythrocyte distribution width (RBC) [Ratio] 13.9 % 12.0-14.8 [facility] Globulin Calc (S) [Mass/Vol] Ordered By: Leroy Wray on 03-26-2023 Globulin (S) [Mass/Vol] 2.1 g/dL [facility] Glucose [Mass/volume] in Ser um or PlasmaOrdered By: Leroy Wray on 03-26-2023 Glucose [Mass/Vol] 96 mg/dL 70-100 [facility] Comment on above: ADA recommended refe rence rangeRandom Glucose Reference Range is dependent on time and content of last meal. Glucose of more than 200 mg/dL in a nonstressed, ambulatory subject supports the diagnosis of Diabetes Mellitus. Hematocrit Auto (Bld) [Volum e fraction]Ordered By: Leroy Wray on 03-26-2023 Hematocrit (Bld) [Volume fraction] 44.6 % 38.8-50.0 [facility] Hemoglobin [Mass/volume] in BloodOrdered By: Leroy Wray on 03-26-2023 Hemoglobin (Bld) [Mass/Vol] 15.2 g/dL 13.0-17.0 [facility] Leukocytes [#/volume] correc navi for nucleated erythrocytes in Blood by Automated counOrdered By: Leroy Wray on 03-26-2023 WBC corrected for nucl RBC Auto (Bld) [#/Vol] 6.1 10*3/uL 4.1-10.5 [facility] Lipid Panelon 03-26-2023 Cholesterol [Mass/Vol] 179 mg/dL Normal 140-200 [facility] Comment on above: Order Comment: Reaso n for Exam Hyperlipidemia Result Comment: Chol less than 200 mg/dl low risk Chol 201-239 mg/dl borderline risk Chol 240 mg/dl and greater high risk Performed By: #### C BC #### [facility] [address] [place] [address] [place] Cholesterol in HDL [Mass/Vol] 37 mg/dL Normal 23-92 [facility] Comment on above: Order Comment: Reaso n for Exam Hyperlipidemia Result Comment: HDL CHOL ATP-III CLASSIFICATION Cardiovascular Risk HDL > or equal to 60 mg/dL LOW HDL < 40 mg/dL HIGH Performed By: #### C BC #### [facility] [address] [place] [address] [place] Cholesterol.total/Cho lesterol in HDL [Mass ratio] 4.8 {ratio} Normal <5.0 [facility] Comment on above: Order Comment: Reaso n for Exam Hyperlipidemia Performed By: #### C BC #### [facility] [address] [place] [address] [place] LDL Cholesterol,Calculate d 118 mg/dL High 0-100 [facility] Comment on above: Order Comment: Reaso n for Exam Hyperlipidemia Result Comment: LDL ATP III CLASSIFICATION LDL less than 100 mg/dL Optimal LDL 100-129 mg/dL Near or above optimal LDL 130-159 mg/dL Borderline high LDL 160-189 mg/dL High LDL greater than 189 mg/dL Very high Performed By: #### C BC #### [facility] [address] Triglyceride w/Reflex 121 mg/dL Normal 0-149 [facility] Comment on above: Order Comment: Reaso n for Exam Hyperlipidemia Result Comment: TRIG ATP III CLASSIFICATION TRIG less than 150 mg/dL Normal TRIG 150-199 mg/dL Borderline high TRIG 200-500 mg/dL High TRIG greater than 500 mg/dL Very high Standard traceable to the Center for Disease Conrtrol and Prevention (CDC) test method. Performed By: #### C BC #### [facility] [address] VLDL CHOLESTEROL 24 mg/dL Normal [facility] Comment on above: Order Comment: Reaso n for Exam Hyperlipidemia Performed By: #### C BC #### [facility] [address] [place] [id number] [facility] Lymphocytes Auto (Bld) [#/Vo l]Ordered By: Leroy Wray on 03-26-2023 Lymphocytes (Bld) [#/Vol] 2.5 10*3/uL 1.00-4.8 [facility] Lymphocytes/100 WBC Auto (Bl d)Ordered By: Leroy Wray on 03-26-2023 Lymphocytes/100 WBC (Bld) 41.4 % . [facility] MCH Auto (RBC) [Entitic mass ]Ordered By: Leroy Wray on 03-26-2023 MCH (RBC) [Entitic mass] 31.3 pg 27.5-35.2 [facility] MCHC Auto (RBC) [Mass/Vol]Or dered By: Leroy Wray on 03-26-2023 MCHC (RBC) [Mass/Vol] 34.2 g/dL 32.5-35.6 [facility] MCV Auto (RBC) [Entitic vol] Ordered By: Leroy Wray on 03-26-2023 MCV (RBC) [Entitic vol] 91.3 fL 83.5-101 [facility] Monocytes Auto (Bld) [#/Vol] Ordered By: Leroy Wray on 03-26-2023 Monocytes (Bld) [#/Vol] 0.4 10*3/uL 0.0-0.8 [facility] Monocytes/100 WBC Auto (Bld) Ordered By: Leroy Wray on 03-26-2023 Monocytes/100 WBC (Bld) 7.3 % . [facility] Neutrophils Auto (Bld) [#/Vo l]Ordered By: Leroy Wray on 03-26-2023 Neutrophils (Bld) [#/Vol] 2.9 10*3/uL 1.8-7.7 [facility] Neutrophils/100 WBC Auto (Bl d)Ordered By: Leroy Wray on 03-26-2023 Neutrophils/100 WBC (Bld) 47.2 % . [facility] No Panel InformationOrdered By: Leroy Wray on 03-26-2023 Estimated GFR (CKD-EPI) > 60.0 mL/Min [facility] Creatinine Clearance (Chem N/A [facility] Nucleated erythrocytes [Pres ence] in Blood by Automated countOrdered By: Leroy Wray on 03-26-2023 Nucleated RBC Auto Ql (Bld) 0.3 /100{WBC} 0-0.5 [facility] Platelet mean volume Auto (B ld) [Entitic vol]Ordered By: Leroy Wray on 03-26-2023 Platelet mean volume (Bld) [Entitic vol] 8.4 fL 6.6-10.1 [facility] Platelets Auto (Bld) [#/Vol] Ordered By: Leroy Wray on 03-26-2023 Platelets (Bld) [#/Vol] 160 10*3/uL 150-450 [facility] Potassium [Moles/volume] in Serum or PlasmaOrdered By: Leroy Wray on 03-26-2023 Potassium [Moles/Vol] 3.8 mmol/L 3.5-5.1 [facility] Protein [Mass/volume] in Ser um or PlasmaOrdered By: Leroy Wray on 03-26-2023 Protein [Mass/Vol] 6.3 g/dL 6.4-8.9 [facility] RBC Auto (Bld) [#/Vol]Ordere d By: Leroy Wray on 06-05-2023 RBC (Bld) [#/Vol] 4.88 10*6/uL 3.90-5.60 [facility] Serum or plasma albumin/glob ulin mass ratioOrdered By: Leroy Wray on 03-26-2023 Albumin/Globulin [Mass ratio] 2.0 {ratio} [facility] Serum or plasma anion gap de terminationOrdered By: Leory Wray on 03-26-2023 Anion gap [Moles/Vol] 8.7 mmol/L 6.0-15.0 [facility] Serum or plasma high density lipoprotein (HDL) cholesterol measurementOrdered By: Leroy Wray on 03-26-2023 Cholesterol in HDL [Mass/Vol] 37 mg/dL 23-92 [facility] Comment on above: HDL CHOL ATP-III CLA SSIFICATION Cardiovascular RiskHDL > or equal to 60 mg/dL LOWHDL < 40 mg/dL HIGH Serum or plasma total choles terol/high density lipoprotein (HDL) cholesterol mass ratOrdered By: Leroy Wray on 03-26-2023 Cholesterol.total/Cho lesterol in HDL [Mass ratio] 4.8 {ratio} <5.0 [facility] Sodium [Moles/volume] in Ser um or PlasmaOrdered By: Leroy Wray on 03-26-2023 Sodium [Moles/Vol] 144 mmol/L 136-145 [facility] Thyroid Stimulating Hormoneo n 03-26-2023 TSH Qn 7.60 m[IU]/L High 0.45-5.33 [facility] Comment on above: Order Comment: Reaso n for Exam Hyperlipidemia Result Comment: PERF ORMED BY: [place] [address] PATHOLOGIST [employer] DARIO MILLER M.D. Performed By: #### C #### [address] Thyrotropin [Units/volume] i n Serum or PlasmaOrdered By: Leroy Wray on 03-26-2023 TSH Qn 7.60 m[IU]/L 0.45-5.33 [facility] Triglyceride [Mass/volume] i n Serum or PlasmaOrdered By: Leroy Wray on 03-26-2023 Triglyceride [Mass/Vol] 121 mg/dL 0-149 [facility] Comment on above: TRIG ATP III CLASSIF ICATIONTRIG less than 150 mg/dL NormalTRIG 150-199 mg/dL Borderline highTRIG 200-500 mg/dL High TRIG greater than 500 mg/dL Very highStandard traceable to the Center for Disease Conrtrol and Prevention (CDC) test method. Urea nitrogen [Mass/volume] in Serum or PlasmaOrdered By: Leroy Wray on 03-26-2023 Urea nitrogen [Mass/Vol] 18 mg/dL 7-25 [facility] WBC Auto (Bld) [#/Vol]Ordere d By: Leroy Wray on 03-26-2023 WBC (Bld) [#/Vol] 6.1 10*3/uL 4.1-10.5 [facility] COVID + FLU Quick Testingon 12-18-2022 SARS-CoV-2 (COVID-19) RNA JOLENE+probe Ql (Unsp spec) Negative [facility] [employer] Other COVID + FLU Quick Testing Negative [facility] [employer] Other RSVon 12-18-2022 RSV Ag IA Ql (Unsp spec) Negative [facility] [employer] Other Basophils Auto (Bld) [#/Vol] Ordered By: Leroy Wray on 09-12-2022 Basophils (Bld) [#/Vol] 0.0 10*3/uL 0.0-0.2 [facility] Basophils/100 WBC Auto (Bld) Ordered By: Leroy Wray on 09-12-2022 Basophils/100 WBC (Bld) 0.7 % . [facility] Body fluid albumin measureme nt (mass/volume)Ordered By: Leroy Wray on 09-12-2022 Albumin (Body fld) [Mass/Vol] 3.8 g/dL 3.2-5.5 [facility] Cholesterol [Mass/volume] in Serum or PlasmaOrdered By: Leroy Wray on 09-12-2022 Cholesterol [Mass/Vol] 165 mg/dL 140-200 [facility] Comment on above: Chol less than 200 m g/dl low riskChol 201-239 mg/dl borderline riskChol 240 mg/dl and greater high risk Cholesterol in LDL Calc [Mas s/Vol]Ordered By: Leroy Wray on 09-12-2022 Cholesterol in LDL [Mass/Vol] 111 mg/dL 0-100 [facility] Comment on above: LDL ATP III CLASSIFI CATIONLDL less than 100 mg/dL OptimalLDL 100-129 mg/dL Near or above optimalLDL 130-159 mg/dL Borderline highLDL 160-189 mg/dL HighLDL greater than 189 mg/dL Very high Cholesterol in VLDL Calc [Ma ss/Vol]Ordered By: Leroy Wray on 09-12-2022 Cholesterol in VLDL [Mass/Vol] 19 mg/dL [facility] Creatinine and Glomerular fi ltration rate.predicted panel (S/P/Bld)Ordered By: Leroy Wray on 09-12-2022 Creatinine [Mass/Vol] 0.95 mg/dL 0.64-1.27 [facility] Eosinophils Auto (Bld) [#/Vo l]Ordered By: Leroy Wray on 09-12-2022 Eosinophils (Bld) [#/Vol] 0.2 10*3/uL 0.0-0.45 [facility] Eosinophils/100 WBC Auto (Bl d)Ordered By: Leroy Wray on 09-12-2022 Eosinophils/100 WBC (Bld) 4.1 % . [facility] Erythrocyte distribution wid th Auto (RBC) [Ratio]Ordered By: Leroy Wray on 09-12-2022 Erythrocyte distribution width (RBC) [Ratio] 13.8 % 12.0-14.8 [facility] Estimated glomerular filtrat ion rate (GFR) non- AmericanOrdered By: Leroy Wray on 09-12-2022 GFR/1.73 sq M.predicted among non-blacks MDRD (S/P/Bld) [Vol rate/Area] > 60 mL/Min [facility] Globulin Calc (S) [Mass/Vol] Ordered By: Leroy Wray on 09-12-2022 Globulin (S) [Mass/Vol] 2.3 g/dL [facility] Hematocrit Auto (Bld) [Volum e fraction]Ordered By: Leroy Wray on 09-12-2022 Hematocrit (Bld) [Volume fraction] 45.9 % 38.8-50.0 [facility] Hemoglobin [Mass/volume] in BloodOrdered By: Leroy Wray on 09-12-2022 Hemoglobin (Bld) [Mass/Vol] 15.3 g/dL 13.0-17.0 [facility] Laboratory - Hematology and Cell countsOrdered By: Leroy Wray on 09-12-2022 Nucleated RBC/100 WBC (Bld) [Ratio] 0.1 % 0-0.5 [facility] Leukocytes [#/volume] in Blo od by Automated countOrdered By: Leroy Wray on 09-12-2022 WBC (Bld) [#/Vol] 5.6 10*3/uL 4.5-11.0 [facility] Lymphocytes Auto (Bld) [#/Vo l]Ordered By: Leroy Wray on 09-12-2022 Lymphocytes (Bld) [#/Vol] 2.1 10*3/uL 1.00-4.8 [facility] Lymphocytes/100 WBC Auto (Bl d)Ordered By: Leroy Wray on 09-12-2022 Lymphocytes/100 WBC (Bld) 37.3 % . [facility] MCH Auto (RBC) [Entitic mass ]Ordered By: Leroy Wray on 09-12-2022 MCH (RBC) [Entitic mass] 30.6 pg 27.5-35.2 [facility] MCHC Auto (RBC) [Mass/Vol]Or dered By: Leroy Wray on 09-12-2022 MCHC (RBC) [Mass/Vol] 33.3 g/dL 32.5-35.6 [facility] MCV Auto (RBC) [Entitic vol] Ordered By: Leroy Wray on 09-12-2022 MCV (RBC) [Entitic vol] 91.9 fL 83.5-101 [facility] Monocytes Auto (Bld) [#/Vol] Ordered By: Leroy Wray on 09-12-2022 Monocytes (Bld) [#/Vol] 0.4 10*3/uL 0.0-0.8 [facility] Monocytes/100 WBC Auto (Bld) Ordered By: Leroy Wray on 09-12-2022 Monocytes/100 WBC (Bld) 7.7 % . [facility] Neutrophils Auto (Bld) [#/Vo l]Ordered By: Leroy Wray on 09-12-2022 Neutrophils (Bld) [#/Vol] 2.8 10*3/uL 1.8-7.7 [facility] Neutrophils/100 WBC Auto (Bl d)Ordered By: Leroy Wray on 09-12-2022 Neutrophils/100 WBC (Bld) 50.2 % . [facility] No Panel InformationOrdered By: Leroy Wray on 09-12-2022 Estimated GFR () > 60 mL/Min [facility] Comment on above: GFR estimated refere nce range: According to KDOQI guidelines, <60 ml/min/1.73m2 is sufficient to diagnose a patient with chronic kidney disease. Pharmacy Creatinine Clearance (Chem N/A [facility] Prostate Specific Antigen Screen 0.090 ng/mL 0.000-4.00 0 [facility] Platelet mean volume Auto (B ld) [Entitic vol]Ordered By: Leroy Wray on 09-12-2022 Platelet mean volume (Bld) [Entitic vol] 8.6 fL 6.6-10.1 [facility] Platelets Auto (Bld) [#/Vol] Ordered By: Leroy Wray on 09-12-2022 Platelets (Bld) [#/Vol] 177 10*3/uL 150-450 [facility] Protein [Mass/volume] in Ser um or PlasmaOrdered By: Leroy Wray on 09-12-2022 Protein [Mass/Vol] 6.1 g/dL 6.1-7.9 [facility] RBC Auto (Bld) [#/Vol]Ordere d By: Leroy Wray on 09-12-2022 RBC (Bld) [#/Vol] 4.99 10*6/uL 3.90-5.60 [facility] Serum or plasma alanine grewal otransferase measurement without P-5'-P (enzymatic activiOrdered By: Leroy Wray on 09-12-2022 ALT No additional P-5'-P [Catalytic activity/Vol] 25 U/L 10-60 [facility] Serum or plasma albumin/glob ulin mass ratioOrdered By: Leroy Wray on 09-12-2022 Albumin/Globulin [Mass ratio] 1.7 {ratio} [facility] Serum or plasma alkaline kosta sphatase measurement (enzymatic activity/volume)Ordered By: Leroy Wray on 09-12-2022 ALP [Catalytic activity/Vol] 36 U/L 32-92 [facility] Serum or plasma anion gap de terminationOrdered By: Leroy Wray on 09-12-2022 Anion gap [Moles/Vol] 14.7 mmol/L 6.0-15.0 [facility] Serum or plasma aspartate am inotransferase measurement (enzymatic activity/volume)Ordered By: Leroy Wray on 09-12-2022 AST [Catalytic activity/Vol] 18 U/L 10-42 [facility] Serum or plasma calcium yokasta urement (mass/volume)Ordered By: Leroy Wray on 09-12-2022 Calcium [Mass/Vol] 8.8 mg/dL 8.2-10.2 [facility] Serum or plasma chloride gabriela surement (moles/volume)Ordered By: Leroy Wray on 09-12-2022 Chloride [Moles/Vol] 103 mmol/L 95-114 [facility] Serum or plasma glucose yokasta urement (mass/volume)Ordered By: eLroy Wray on 09-12-2022 Glucose [Mass/Vol] 98 mg/dL 70-100 [facility] Comment on above: ADA recommended refe rence rangeRandom Glucose Reference Range is dependent on time and content of last meal. Glucose of more than 200 mg/dL in a nonstressed, ambulatory subject supports the diagnosis of Diabetes Mellitus. Serum or plasma high density lipoprotein (HDL) cholesterol measurementOrdered By: Leroy Wray on 09-12-2022 Cholesterol in HDL [Mass/Vol] 35 mg/dL 29-71 [facility] Comment on above: HDL CHOL ATP-III CLA SSIFICATION Cardiovascular RiskHDL > or equal to 60 mg/dL LOWHDL < 40 mg/dL HIGH Serum or plasma potassium me asurement (moles/volume)Ordered By: Leroy Wray on 09-12-2022 Potassium [Moles/Vol] 4.0 mmol/L 3.5-5.1 [facility] Serum or plasma sodium measu rement (moles/volume)Ordered By: Leroy Wray on 09-12-2022 Sodium [Moles/Vol] 142 mmol/L 136-146 [facility] Serum or plasma total biliru bin measurement (mass/volume)Ordered By: Leroy Wray on 09-12-2022 Bilirubin [Mass/Vol] 1.0 mg/dL 0.3-1.2 [facility] Serum or plasma total carbon dioxide measurement (moles/volume)Ordered By: Leroy Wray on 09-12-2022 CO2 [Moles/Vol] 28.3 mmol/L 22.0-30.[address] [facility] Serum or plasma total choles terol/high density lipoprotein (HDL) cholesterol mass ratOrdered By: Leroy Wray on 09-12-2022 Cholesterol.total/Cho lesterol in HDL [Mass ratio] 4.7 {ratio} <5.0 [facility] Serum or plasma urea nitroge n measurement (mass/volume)Ordered By: Leroy Wray on 09-12-2022 Urea nitrogen [Mass/Vol] 13 mg/dL 9-23 [facility] TSH DL <= 0.005 mIU/L QnOrde red By: Leroy Wray on 09-12-2022 TSH Qn 5.10 m[IU]/L 0.45-5.33 [facility] Triglyceride [Mass/volume] i n Serum or PlasmaOrdered By: Leroy Wray on 09-12-2022 Triglyceride [Mass/Vol] 96 mg/dL 35-149 [facility] Comment on above: TRIG ATP III CLASSIF ICATIONTRIG less than 150 mg/dL NormalTRIG 150-199 mg/dL Borderline highTRIG 200-500 mg/dL High TRIG greater than 500 mg/dL Very highStandard traceable to the Center for Disease Conrtrol and Prevention (CDC) test method. HbA1c (Bld) [Mass fraction]o n 09-27-2021 A1C HEMOGLOBIN 5.4 [employer] Other A1C HEMOGLOBIN [employer] Other Coding Summaryon 02-26-2018 Coding Summary CODING DATE: [facility] STATUS: Home PAYOR: Medicare APC DESCRIPTION 5521 Level 1 Imaging without Contrast ADMIT DX: REASON FOR VISIT DX: R09.81 Nasal congestion R05 Cough FINAL DX: PRINCIPAL: J06.9 Acute upper respiratory infection, unspecified SECONDARY: PYMT PROC APC STAT DESCRIPTION DOCTOR NAME DATE NOTE: The code number assigned matches the documented diagnosis and / or procedure in the patient's chart. However, the narrative phrase printed from the coding software may appear abbreviated, or result in slightly different terminology. Coded By: Hadley Hightower' Date Saved: 02/26/2018 02:11 pm [facility] Coding Summary CODING DATE: [facility] STATUS: Home PAYOR: Medicare APC DESCRIPTION 5521 Level 1 Imaging without Contrast ADMIT DX: REASON FOR VISIT DX: R09.81 Nasal congestion R05 Cough FINAL DX: PRINCIPAL: J06.9 Acute upper respiratory infection, unspecified SECONDARY: PYMT PROC APC STAT DESCRIPTION DOCTOR NAME DATE NOTE: The code number assigned matches the documented diagnosis and / or procedure in the patient's chart. However, the narrative phrase printed from the coding software may appear abbreviated, or result in slightly different terminology. Coded By: Vlad Hightower Date Saved: 02/26/2018 02:11 pm [facility] ED Clinical Summaryon 2017 ED Clinical Summary [facility] ? Urgent [address] [place] [id number] clinical SummaryPERSON INFORMATIONName: CYRUS RODRIGUEZ Age: 67 Years Sex: MALEDOB: [birth year] MRN: Acct#:Visit Reason: UC - Cough; UC - Sinus Pain or Congestion; CONGESTION, COUGH Arrival: 02/24/18 18:06:00 Discharge: 02/24/18 18:45:00LOS: 000 00:39 Check In: 02/24/18 18:06:00 Checkout: 02/24/18 18:45:00Address:[address] [place] [address] [address] [place] [id number]: Provider, NonePROVIDER INFORMATIONProvider Role Assigned UnassignedMandy Damon ED PA 02/24/18 18:07:13Coral Thurston [facility] ADMINISTRATIVE ASSISTANT Nurse 02/24/18 18:07:47VITALS INFORMATIONVital Sign Triage LatestTemperature TympanicTemperature Temporal ArteryPulse Rate 86 bpm 86 bpmO2 Sat 94 % 94 %Respiratory Rate 20 br/min 20 br/minBlood Pressure 130 mmHg/70 mmHg 130 mmHg/70 mmHgMEDICAL INFORMATIONMedications Given:Allergy Information:TemeculaPHYSIC CATE DOCUMENTATIONPatient: CYRUS RODRIGUEZ : 67 years Sex: MALE : [birth year]Associated Diagnoses: URI, acuteAuthor: Lady Damon InformationAdditional information: Chief Complaint from Nursing Triage Note : Chief Vzhtsuqpf12/06/18 18:04 EDT Chief Complaint C/O sinus congestion and drainage, cough. .History of Present Rxvydez31 year old male presents with chief compliant of sinus congestion and cough. patient has a loose nonproductive cough on exam. patient is afebril, denies history of smoking. he is her with who has simialr symptoms. lung sounds are clear. moist loose cough on exam. he states he has been sick for 10 days.Review of SystemsConstitutional symptoms: Chills.Respiratory symptoms: Cough, Sputum production: Yellow.Health StatusAllergies:Allergic Reactions (Selected)Severity Not DocumentedTemecula- No reactions were documented..Medications: (Selected)Documented MedicationsDocumentedCombi gael: 0 Refill(s).Past Medical/ Family/ Social HistoryMedical history:No active or resolved past medical history items have been selected or recorded..Surgical history:No active procedure history items have been selected or recorded..Family history:No family history items have been selected or recorded..Social history:Social & Psychosocial HabitsNo Data Available.Problem list:Active Problems (2)Cataracts, bilateralGlaucoma.Physical Examination Vital SignsVital Signs02/24/18 18:06 EDT Temperature Oral 37.3 DegC Peripheral Pulse Rate 86 bpm Respiratory Rate 20 br/min Systolic Blood Pressure 130 mmHg Diastolic Blood Pressure 70 mmHg SpO2 94 % O2 Flow 0 L/min.General: Alert, no acute distress.Skin: Warm, dry.Head: Normocephalic, atraumatic.Neck: Supple, trachea midline.Eye: Pupils are equal, round and reactive to light, extraocular movements are intact.Ears, nose, mouth and throat: Tympanic membranes clear, oral mucosa moist.Cardiovascular: Regular rate and rhythm, No murmur.Respiratory: Lungs are clear to auscultation, respirations are non-labored, Cough: Moderate, hacking, productive.Chest wall: No tenderness.Back: Nontender, Normal range of motion.Musculoskeletal: Normal ROM, normal strength.Neurological: Alert and oriented to person, place, time, and situation.LymphaticsPsychi atric: Cooperative, appropriate mood & affect.Medical Decision MakingDifferential Diagnosis: Upper respiratory infection, bronchitis.Reexamination/ Reevaluationpatient presents with chief complaint of cough and congestion for greater than one week. patient will be discharged to home with a joey and bernie baig.patient looks well, no acute distressImpression and PlanDiagnosisURI, acute (OWF82-LY J06.9, Discharge, Medical)PlanCondition: Stable.Disposition: Discharged: Time 02/24/18 18:36:00, to home.Prescriptions: Launch prescriptionsPharmacy:Code ine Phosphate-Promethazine HCl 10 mg-6.25 mg/5 mL oral syrup (Prescribe): 5 mL, PO, q6hr (int), for 5 day(s), not to exceed 30 mL/24 hours, PRN: as needed for cough, 90 mL, 0 Refill(s)Zithromax 250 mg oral tablet (Prescribe): 1 packet(s), PO, Once, as directed on package labeling, 6 tab(s), 0 Refill(s).Patient was given the following educational materials: Upper Respiratory Infection, Adult, Upper Respiratory Infection, Adult.Follow up with: None Provider; Catalino Baltazar In 2 days 02/26/18.Counseled: Patient, Family, Regarding treatment plan, Regarding prescription.DISCHARGE INFORMATION:Discharge Disposition: HomeDischarge Location:PATIENT EDUCATION INFORMATIONInstructions: Upper Respiratory Infection, AdultFollow-Up:With: Address: When:Catalino Baltazar [address] [place], [place] [id number] Business (1) In 2 days 02/26/18With: Address: When:None ProviderDIAGNOSIS:URI, acutePatient Understands: Yes - Patient/family/caregiver verbalizes understanding of instructions givenComment: Normal [facility] ED Note - Physicianon 2017 ED Note - Physician Patient: MONIQUE RODRIGUEZ : 67 years Sex: MALE : [birth year]Associated Diagnoses: URI, acuteAuthor: Lady Damon InformationAdditional information: Chief Complaint from Nursing Triage Note : Chief Tyiskhxbs86/06/18 18:04 EDT Chief Complaint C/O sinus congestion and drainage, cough. .History of Present Eitwacq44 year old male presents with chief compliant of sinus congestion and cough. patient has a loose nonproductive cough on exam. patient is afebril, denies history of smoking. he is her with who has simialr symptoms. lung sounds are clear. moist loose cough on exam. he states he has been sick for 10 days.Review of SystemsConstitutional symptoms: Chills.Respiratory symptoms: Cough, Sputum production: Yellow.Health StatusAllergies:Allergic Reactions (Selected)Severity Not DocumentedTemecula- No reactions were documented..Medications: (Selected)Documented MedicationsDocumentedCombi gael: 0 Refill(s).Past Medical/ Family/ Social HistoryMedical history:No active or resolved past medical history items have been selected or recorded..Surgical history:No active procedure history items have been selected or recorded..Family history:No family history items have been selected or recorded..Social history:Social & Psychosocial HabitsNo Data Available.Problem list:Active Problems (2)Cataracts, bilateralGlaucoma.Physical Examination Vital SignsVital Signs02/24/18 18:06 EDT Temperature Oral 37.3 DegC Peripheral Pulse Rate 86 bpm Respiratory Rate 20 br/min Systolic Blood Pressure 130 mmHg Diastolic Blood Pressure 70 mmHg SpO2 94 % O2 Flow 0 L/min.General: Alert, no acute distress.Skin: Warm, dry.Head: Normocephalic, atraumatic.Neck: Supple, trachea midline.Eye: Pupils are equal, round and reactive to light, extraocular movements are intact.Ears, nose, mouth and throat: Tympanic membranes clear, oral mucosa moist.Cardiovascular: Regular rate and rhythm, No murmur.Respiratory: Lungs are clear to auscultation, respirations are non-labored, Cough: Moderate, hacking, productive.Chest wall: No tenderness.Back: Nontender, Normal range of motion.Musculoskeletal: Normal ROM, normal strength.Neurological: Alert and oriented to person, place, time, and situation.LymphaticsPsychi atric: Cooperative, appropriate mood & affect.Medical Decision MakingDifferential Diagnosis: Upper respiratory infection, bronchitis.Reexamination/ Reevaluationpatient presents with chief complaint of cough and congestion for greater than one week. patient will be discharged to home with a joey and bernie baig.patient looks well, no acute distressImpression and PlanDiagnosisURI, acute (PYC01-RW J06.9, Discharge, Medical)PlanCondition: Stable.Disposition: Discharged: Time 02/24/18 18:36:00, to home.Prescriptions: Launch prescriptionsPharmacy:Code ine Phosphate-Promethazine HCl 10 mg-6.25 mg/5 mL oral syrup (Prescribe): 5 mL, PO, q6hr (int), for 5 day(s), not to exceed 30 mL/24 hours, PRN: as needed for cough, 90 mL, 0 Refill(s)Zithromax 250 mg oral tablet (Prescribe): 1 packet(s), PO, Once, as directed on package labeling, 6 tab(s), 0 Refill(s).Patient was given the following educational materials: Upper Respiratory Infection, Adult, Upper Respiratory Infection, Adult.Follow up with: None Provider; Catalino Baltazar In 2 days 02/26/18.Counseled: Patient, Family, Regarding treatment plan, Regarding prescription.[Electronical ly Signed on: 02/24/2018 18:48 EDT] Mandy Damon[Verified on: 02/24/2018 18:48 EDT] Mandy Damon Normal [facility] ED Patient Summaryon 018 ED Patient Summary [facility] ? Urgent [address] [place] [address] pATIENT DISCHARGE INSTRUCTIONSPatient InformationName: CYRUS RODRIGUEZ Age: 67 YearsDate of : [birth year]MRN: [id number] For Visit: UC - Cough; UC - Sinus Pain or Congestion; CONGESTION, COUGHArrival Time: 02/24/18 18:06:00Phone: Primary Care Physician: Provider, NoneAttending Physician: Mandy DamonComment:Patient EducationWith: Address: When:Catalino Baltazar [address] [place] [id number] Business (1) In 2 days 02/26/18With: Address: When:None ProviderUpper Respiratory Infection, AdultMost upper respiratory infections (URIs) are a viral infection of the air passages leading to the lungs. A URI affects the nose, throat, and upper air passages. The most common type of URI is nasopharyngitis and is typically referred to as the common cold. URIs run their course and usually go away on their own. Most of the time, a URI does not require medical attention, but sometimes a bacterial infection in the upper airways can follow a viral infection. This is called a secondary infection. Sinus and middle ear infections are common types of secondary upper respiratory infections.Bacterial pneumonia can also complicate a URI. A URI can worsen asthma and chronic obstructive pulmonary disease (COPD). Sometimes, these complications can require emergency medical care and may be life threatening.What are the causes?Almost all URIs are caused by viruses. A virus is a type of germ and can spread from one person to another.What increases the risk?You may be at risk for a URI if:? You smoke.? You have chronic heart or lung disease.? You have a weakened defense (immune) system.? You are very young or very old.? You have nasal allergies or asthma.? You work in crowded or poorly ventilated areas.? You work in health care facilities or schools.What are the signs or symptoms?Symptoms typically develop 2?3 days after you come in contact with a cold virus. Most viral URIs last 7?10 days. However, viral URIs from the influenza virus (flu virus) can last 14?18 days and are typically more severe. Symptoms may include:? Runny or stuffy (congested) nose.? Sneezing.? Cough.? Sore throat.? Headache.? Fatigue.? Fever.? Loss of appetite.? Pain in your forehead, behind your eyes, and over your cheekbones (sinus pain).? Muscle aches.How is this diagnosed?Your health care provider may diagnose a URI by:? Physical exam.? Tests to check that your symptoms are not due to another condition such as:? Strep throat.? Sinusitis.? Pneumonia.? Asthma.How is this treated?A URI goes away on its own with time. It cannot be cured with medicines, but medicines may be prescribed or recommended to relieve symptoms. Medicines may help:? Reduce your fever.? Reduce your cough.? Relieve nasal congestion.Follow these instructions at home:? Take medicines only as directed by your health care provider.? Gargle warm saltwater or take cough drops to comfort your throat as directed by your health care provider.? Use a warm mist humidifier or inhale steam from a shower to increase air moisture. This may make it easier to breathe.? Drink enough fluid to keep your urine clear or pale yellow.? Eat soups and other clear broths and maintain good nutrition.? Rest as needed.? Return to work when your temperature has returned to normal or as your health care provider advises. You may need to stay home longer to avoid infecting others. You can also use a face mask and careful hand washing to prevent spread of the virus.? Increase the usage of your inhaler if you have asthma.? Do notuse any tobacco products, including cigarettes, chewing tobacco, or electronic cigarettes. If you need help quitting, ask your health care provider.How is this prevented?The best way to protect yourself from getting a cold is to practice good hygiene.? Avoid oral or hand contact with people with cold symptoms.? Wash your hands often if contact occurs.There is no clear evidence that vitamin C, vitamin E, echinacea, or exercise reduces the chance of developing a cold. However, it is always recommended to get plenty of rest, exercise, and practice good nutrition.Contact a health care provider if:? You are getting worse rather than better.? Your symptoms are not controlled by medicine.? You have chills.? You have worsening shortness of breath.? You have brown or red mucus.? You have yellow or brown nasal discharge.? You have pain in your face, especially when you bend forward.? You have a fever.? You have swollen neck glands.? You have pain while swallowing.? You have white areas in the back of your throat.Get help right away if:? You have severe or persistent:? Headache.? Ear pain.? Sinus pain.? Chest pain.? You have chronic lung disease and any of the following:? Wheezing.? Prolonged cough.? Coughing up blood.? A change in your usual mucus.? You have a stiff neck.? You have changes in your:? Vision.? Hearing.? Thinking.? Mood.This information is not intended to replace advice given to you by your health care provider. Make sure you discuss any questions you have with your health care provider.Document Released: 04/03/2002 Document Revised: 06/10/2017 Document Reviewed: 01/13/2015[employer]2 [employer] Interactive Patient Education ? 2017 [employer].Medication Information:The exam and treatment you received today in the [facility] Emergency Department were for an urgent problem and are not intended as complete care. It is important for you to follow up with a doctor, nurse practitioner, or physician?s gift shop assistant for ongoing care. If your symptoms become worse or you do not improve as expected and you are unable to reach your usual health care provider, you should return to the Emergency Department, we are available 24 hours a day.For those patients who have received Radiology results, the interpretation of your X-ray as given to you by our Emergency Department physician is only a preliminary report. The Radiologist will review your films and if there is a change in the diagnosis you will be notified by phone. Please make sure you have provided a working phone number so we can reach you if necessary.In the event that you had a lab culture while you were a patient in the Emergency Department, you will be notified by phone if there is a need to change your antibiotic. Please make sure you have provided a working phone number so we can reach you if necessary.[facility] Emergency Department has provided you with a complete list of medications post discharge. Please inform your mess attendant crew/provider of your visit and for further instruction on these medications. Any specific questions regarding your chronic medications and dosages should be discussed with your primary care physician(s) and/or pharmacist. New MedicationsPrinted Prescriptionsazithromycin (Zithromax 250 mg oral tablet) 1 packet(s) Oral once. as directed on package labeling. Refills: 0.codeine-promethazine (Codeine Phosphate-Promethazine HCl 10 mg-6.25 mg/5 mL oral syrup) 5 Milliliter Oral every 6 hours as needed as needed for cough for 5 Days. not to exceed 30 mL/24 hours. Refills: 0.Medications to Continue That Have Not ChangedOther Medicationsbrimonidine-cecil olol ophthalmic (Shanon)Visit InformationVisit Diagnosis:Diagnoses This Visit UC - Cough ([id number]) UC - Sinus Pain or Congestion ([id number]) URI, acute (J06.9)If you received any narcotics, sedation, or any other medication that causes drowsiness for the next 24 hours, unless otherwise directed:? Do not drive a car.? Do not operate machinery such as power tools, lawn mowers, drills, sewing machines, or stoves? Avoid alcoholic beverages and drugs for allergies, nerves, or sleep? Do not make important personal or business decisions or sign any legal documentsReason for Visit:C/O sinus congestion and drainage, cough.Allergies:Substance Reaction Symptoms Type CommentsTemecula DrugVital Signs: Vitals and Measurements this Visit (last charted value for your 02/24/2018 visit) Vital Signs This Visit Temperature Oral: 37.3 DegC Peripheral Pulse Rate: 86 bpm Respiratory Rate: 20 br/min Systolic Blood Pressure: 130 mmHg Diastolic Blood Pressure: 70 mmHg SpO2: 94 % O2 Flow: 0 L/min Measurements This Visit Height: 172.7 cm Weight: 95.2 kg Body Mass Index: 31.92 kg/z9Dcrbhnal List:Problem Onset CommentsCataracts, bilateralGlaucomaMajor Tests and Procedures:The following procedures and tests were performed during your ED visit.LaboratoryRadiologyX R Chest 2 Views 02/24/18 18:07:00 EDT Stat, cough, Allow Modification Per Radiologist, Transport Mode: Cart, 02/24/18 18:07:00 EDTCardiology Viruses or BacteriaWhat?s got you sick?Antibiotics only treat bacterial infections. Viral illnesses cannot be treated with antibiotics. When an antibiotic is not prescribed, ask your healthcare professional for tips on how to relieve symptoms and feel better. Usual CauseIllnessVirusesBacteri a Antibiotic NeededCold/Runny Nose NOBronchitis/Chest Cold (in otherwise healthy children and adults) NOWhooping Cough YesFlu NOStrep Throat YesSore Throat (except strep) NOFluid in the middle ear (otitis media with effusion) NOUrinary Tract Infection YesAntibiotics Aren?t Always the Answerwww.cdc.gov/getsmart GET SMART Know When Antibiotics Mima. Department of Health and Human ServicesCenters for Disease Control and Prevention June 2014 Normal [facility] Urgent Care [address] Urgent Care Record [facility] ? Urgent [address] [place] [address] pATIENT DISCHARGE INSTRUCTIONSPatient InformationName: CYRUS RODRIGUEZ Age: 67 YearsDate of : [birth year]MRN: [id number] For Visit: UC - Cough; UC - Sinus Pain or Congestion; CONGESTION, COUGHArrival Time: 02/24/18 18:06:00Phone: Primary Care Physician: Provider, NoneAttending Physician: Mandy DamonComment:Visit Diagnosis:Diagnoses This Visit UC - Cough ([id number]) UC - Sinus Pain or Congestion ([id number]) URI, acute (J06.9)If you received any narcotics, sedation, or any other medication that causes drowsiness for the next 24 hours, unless otherwise directed:? Do not drive a car.? Do not operate machinery such as power tools, lawn mowers, drills, sewing machines, or stoves? Avoid alcoholic beverages and drugs for allergies, nerves, or sleep? Do not make important personal or business decisions or sign any legal documentsWith: Address: When:Catalino Baltazar [address] [place], [place] [id number] Business (1) In 2 days 02/26/18With: Address: When:None ProviderMedication Information:The exam and treatment you received today in the [facility] Urgent [facility] were for an urgent problem and are not intended as complete care. It is important for you to follow up with a doctor, nurse practitioner, or physician?s gift shop assistant for ongoing care. If your symptoms become worse or you do not improve as expected and you are unable to reach your usual health care provider, you should return to the Emergency Department, we are available 24 hours a day.For those patients who have received Radiology results, the interpretation of your X-ray as given to you by our Urgent Care physician is only a preliminary report. The Radiologist will review your films and if there is a change in the diagnosis you will be notified by phone. Please make sure you have provided a working phone number so we can reach you if necessary.In the event that you had a lab culture while you were a patient in the Urgent Care, you will be notified by phone if there is a need to change your antibiotic. Please make sure you have provided a working phone number so we can reach you if necessary.[facility] has provided you with a complete list of medications post discharge. Please inform your mess attendant crew/provider of your visit and for further instruction on these medications. Any specific questions regarding your chronic medications and dosages should be discussed with your primary care physician(s) and/or pharmacist. New MedicationsPrinted Prescriptionsazithromycin (Zithromax 250 mg oral tablet) 1 packet(s) Oral once. as directed on package labeling. Refills: 0.codeine-promethazine (Codeine Phosphate-Promethazine HCl 10 mg-6.25 mg/5 mL oral syrup) 5 Milliliter Oral every 6 hours as needed as needed for cough for 5 Days. not to exceed 30 mL/24 hours. Refills: 0.Medications to Continue That Have Not ChangedOther Medicationsbrimonidine-cecil olol ophthalmic (Combigan)Visit InformationAllergies:Subst ance Reaction Symptoms Type CommentsTemecula DrugVital Signs: Vitals and Measurements this Visit (last charted value for your 02/24/2018 visit) Vital Signs This Visit Temperature Oral: 37.3 DegC Peripheral Pulse Rate: 86 bpm Respiratory Rate: 20 br/min Systolic Blood Pressure: 130 mmHg Diastolic Blood Pressure: 70 mmHg SpO2: 94 % O2 Flow: 0 L/min Measurements This Visit Height: 172.7 cm Weight: 95.2 kg Body Mass Index: 31.92 kg/b1Lutfopvo List:Problem Onset CommentsCataracts, bilateralGlaucoma Patient EducationUpper Respiratory Infection, AdultMost upper respiratory infections (URIs) are a viral infection of the air passages leading to the lungs. A URI affects the nose, throat, and upper air passages. The most common type of URI is nasopharyngitis and is typically referred to as the common cold. URIs run their course and usually go away on their own. Most of the time, a URI does not require medical attention, but sometimes a bacterial infection in the upper airways can follow a viral infection. This is called a secondary infection. Sinus and middle ear infections are common types of secondary upper respiratory infections.Bacterial pneumonia can also complicate a URI. A URI can worsen asthma and chronic obstructive pulmonary disease (COPD). Sometimes, these complications can require emergency medical care and may be life threatening.What are the causes?Almost all URIs are caused by viruses. A virus is a type of germ and can spread from one person to another.What increases the risk?You may be at risk for a URI if:? You smoke.? You have chronic heart or lung disease.? You have a weakened defense (immune) system.? You are very young or very old.? You have nasal allergies or asthma.? You work in crowded or poorly ventilated areas.? You work in health care facilities or schools.What are the signs or symptoms?Symptoms typically develop 2?3 days after you come in contact with a cold virus. Most viral URIs last 7?10 days. However, viral URIs from the influenza virus (flu virus) can last 14?18 days and are typically more severe. Symptoms may include:? Runny or stuffy (congested) nose.? Sneezing.? Cough.? Sore throat.? Headache.? Fatigue.? Fever.? Loss of appetite.? Pain in your forehead, behind your eyes, and over your cheekbones (sinus pain).? Muscle aches.How is this diagnosed?Your health care provider may diagnose a URI by:? Physical exam.? Tests to check that your symptoms are not due to another condition such as:? Strep throat.? Sinusitis.? Pneumonia.? Asthma.How is this treated?A URI goes away on its own with time. It cannot be cured with medicines, but medicines may be prescribed or recommended to relieve symptoms. Medicines may help:? Reduce your fever.? Reduce your cough.? Relieve nasal congestion.Follow these instructions at home:? Take medicines only as directed by your health care provider.? Gargle warm saltwater or take cough drops to comfort your throat as directed by your health care provider.? Use a warm mist humidifier or inhale steam from a shower to increase air moisture. This may make it easier to breathe.? Drink enough fluid to keep your urine clear or pale yellow.? Eat soups and other clear broths and maintain good nutrition.? Rest as needed.? Return to work when your temperature has returned to normal or as your health care provider advises. You may need to stay home longer to avoid infecting others. You can also use a face mask and careful hand washing to prevent spread of the virus.? Increase the usage of your inhaler if you have asthma.? Do notuse any tobacco products, including cigarettes, chewing tobacco, or electronic cigarettes. If you need help quitting, ask your health care provider.How is this prevented?The best way to protect yourself from getting a cold is to practice good hygiene.? Avoid oral or hand contact with people with cold symptoms.? Wash your hands often if contact occurs.There is no clear evidence that vitamin C, vitamin E, echinacea, or exercise reduces the chance of developing a cold. However, it is always recommended to get plenty of rest, exercise, and practice good nutrition.Contact a health care provider if:? You are getting worse rather than better.? Your symptoms are not controlled by medicine.? You have chills.? You have worsening shortness of breath.? You have brown or red mucus.? You have yellow or brown nasal discharge.? You have pain in your face, especially when you bend forward.? You have a fever.? You have swollen neck glands.? You have pain while swallowing.? You have white areas in the back of your throat.Get help right away if:? You have severe or persistent:? Headache.? Ear pain.? Sinus pain.? Chest pain.? You have chronic lung disease and any of the following:? Wheezing.? Prolonged cough.? Coughing up blood.? A change in your usual mucus.? You have a stiff neck.? You have changes in your:? Vision.? Hearing.? Thinking.? Mood.This information is not intended to replace advice given to you by your health care provider. Make sure you discuss any questions you have with your health care provider.Document Released: 04/03/2002 Document Revised: 06/10/2017 Document Reviewed: 01/13/2015Elsevier Interactive Patient Education ? 2017 [employer]. Viruses or BacteriaWhat?s got you sick?Antibiotics only treat bacterial infections. Viral illnesses cannot be treated with antibiotics. When an antibiotic is not prescribed, ask your healthcare professional for tips on how to relieve symptoms and feel better. Usual CauseIllnessVirusesBacteri a Antibiotic NeededCold/Runny Nose NOBronchitis/Chest Cold (in otherwise healthy children and adults) NOWhooping Cough YesFlu NOStrep Throat YesSore Throat (except strep) NOFluid in the middle ear (otitis media with effusion) NOUrinary Tract Infection YesAntibiotics Aren?t Always the Answerwww.cdc.gov/getsmart GET SMART Know When Antibiotics [place] Department of Health and Human ServicesCenters for Disease Control and Prevention June 2014 [facility] XR Chest 2 Viewson 8 XR Chest 2 Views CHEST TWO VIEWSCLINI SMITH DATA: Cough, nasal drainage and difficulty breathing for four daysPA and lateral views of the chest were obtained. Heart and mediastinalcontours are unremarkable in appearance. No acute infiltrate orconsolidations are seen. There are mild degenerative changes in the dorsalspine with mild convexity of the lower dorsal spine to the right.IMPRESSION: NO ACUTE PROCESS SEEN IN THE CHEST.JOSE MARIA Pacheco #: [id number]: 02/25/2018T: 02/25/2018 Final Dictated by: Yuriy Manrique MD SDictated DT/TM: 02/25/18 5:49Signed (Electronic Signature): Yuriy Manrique MD 02/25/18 12:52 pTechnologist: Joy PEGUERO [facility] Vital Signs Date Time Vital Sign Value Performing Clinician Facility 10-04-2023 13:00-0500 Body height 172.72 cm Leroy Kuns Other [facility] Other 10-04-2023 13:00-0500 Body mass index (BMI) [Ratio] 33.75 kg/m2 Leroy Kuns Other [facility] Other 10-04-2023 13:00-0500 Body weight 100.7 kg Leroy Kuns Other [facility] Other 10-04-2023 13:00-0500 Diastolic blood pressure 78 mm[Hg] Leroy Kuns Other [facility] Other 10-04-2023 13:00-0500 Respiratory rate 20 /min Leroy Kuns Other [facility] Other 10-04-2023 13:00-0500 SaO2% (BldA) [Mass fraction] 91 % Leroy Kuns Other [facility] Other 10-04-2023 13:00-0500 Systolic blood pressure 132 mm[Hg] Leroy Kuns Other [facility] Other 04-04-2023 13:30-0400 Body height 172.72 cm Leroy Kuns Other [facility] Other 04-04-2023 13:30-0400 Body mass index (BMI) [Ratio] 33.14 kg/m2 Leroy Kuns Other [facility] Other 04-04-2023 13:30-0400 Body weight 98.88 kg Leroy Kuns Other [facility] Other 04-04-2023 13:30-0400 Diastolic blood pressure 74 mm[Hg] Leroy Kuns Other [facility] Other 04-04-2023 13:30-0400 Respiratory rate 18 /min Leroy Kuns Other [facility] Other 04-04-2023 13:30-0400 SaO2% (BldA) [Mass fraction] 98 % Leroy Kuns Other [facility] Other 04-04-2023 13:30-0400 Systolic blood pressure 140 mm[Hg] Leroy Kuns Other [facility] Other 10-04-2022 14:45-0500 Body height 172.72 cm Leroy Kuns Other [facility] Other 10-04-2022 14:45-0500 Body mass index (BMI) [Ratio] 32.69 kg/m2 Leroy Kuns Other [facility] Other 10-04-2022 14:45-0500 Body weight 97.52 kg Leroy Kuns Other [facility] Other 10-04-2022 14:45-0500 Diastolic blood pressure 84 mm[Hg] Leroy Kuns Other [facility] Other 10-04-2022 14:45-0500 Respiratory rate 16 /min Leroy Kuns Other [facility] Other 10-04-2022 14:45-0500 SaO2% (BldA) [Mass fraction] 16 % Leroy Kuns Other [facility] Other 10-04-2022 14:45-0500 Systolic blood pressure 150 mm[Hg] Leroy Kuns Other [facility] Other 06-08-2022 11:15-0400 Body height 172.72 cm Leroy Kuns Other [facility] Other 06-08-2022 11:15-0400 Body mass index (BMI) [Ratio] 32.38 kg/m2 Leroy Kuns Other [facility] Other 06-08-2022 11:15-0400 Body weight 96.62 kg Leroy Kuns Other [facility] Other 06-08-2022 11:15-0400 Diastolic blood pressure 70 mm[Hg] Leroy Kuns Other [facility] Other 06-08-2022 11:15-0400 Respiratory rate 16 /min Leroy Kuns Other [facility] Other 06-08-2022 11:15-0400 SaO2% (BldA) [Mass fraction] 93 % Leroy Kuns Other [facility] Other 06-08-2022 11:15-0400 Systolic blood pressure 125 mm[Hg] Leroy Kuns Other [facility] Other 03-02-2022 11:30-0400 Body height 172.72 cm Leroy Kuns Other [facility] Other 03-02-2022 11:30-0400 Body mass index (BMI) [Ratio] 32.23 kg/m2 Leroy Kuns Other [facility] Other 03-02-2022 11:30-0400 Body weight 96.16 kg Leroy Kuns Other [facility] Other 03-02-2022 11:30-0400 Diastolic blood pressure 80 mm[Hg] Leroy Kuns Other [facility] Other 03-02-2022 11:30-0400 Respiratory rate 16 /min Leroy Kuns Other [facility] Other 03-02-2022 11:30-0400 SaO2% (BldA) [Mass fraction] 98 % Leroy Kuns Other [facility] Other 03-02-2022 11:30-0400 Systolic blood pressure 130 mm[Hg] Leroy Kuns Other [facility] Other 01-19-2022 09:30-0400 Body height 172.72 cm Leroy Kuns Other [facility] Other 01-19-2022 09:30-0400 Body mass index (BMI) [Ratio] 33.3 kg/m2 Leroy Kuns Other [facility] Other 01-19-2022 09:30-0400 Body weight 99.34 kg Leroy Kuns Other [facility] Other 01-19-2022 09:30-0400 Diastolic blood pressure 70 mm[Hg] Leroy Kuns Other [facility] Other 01-19-2022 09:30-0400 Respiratory rate 16 /min Leroy Kuns Other [facility] Other 01-19-2022 09:30-0400 SaO2% (BldA) [Mass fraction] 96 % Leroy Kuns Other [facility] Other 01-19-2022 09:30-0400 Systolic blood pressure 110 mm[Hg] Leroy Kuns Other [facility] Other 12-29-2021 11:00-0500 Body height 172.72 cm Leroy Kuns Other [facility] Other 12-29-2021 11:00-0500 Body mass index (BMI) [Ratio] 32.99 kg/m2 Leroy Kuns Other [facility] Other 12-29-2021 11:00-0500 Body weight 98.43 kg Leroy Kuns Other [facility] Other 12-29-2021 11:00-0500 Diastolic blood pressure 70 mm[Hg] Leroy Kuns Other [facility] Other 12-29-2021 11:00-0500 Respiratory rate 16 /min Leroy Kuns Other [facility] Other 12-29-2021 11:00-0500 SaO2% (BldA) [Mass fraction] 98 % Leroy Kuns Other [facility] Other 12-29-2021 11:00-0500 Systolic blood pressure 106 mm[Hg] Leroy Kuns Other [facility] Other 12-20-2021 12:00-0500 Body height 172.72 cm Leroy Kuns Other [facility] Other 12-20-2021 12:00-0500 Body mass index (BMI) [Ratio] 33.45 kg/m2 Leroy Kuns Other [facility] Other 12-20-2021 12:00-0500 Body weight 99.79 kg Leroy Kuns Other [facility] Other 12-20-2021 12:00-0500 Diastolic blood pressure 70 mm[Hg] Leroy Kuns Other [facility] Other 12-20-2021 12:00-0500 Respiratory rate 16 /min Leroy Kuns Other [facility] Other 12-20-2021 12:00-0500 SaO2% (BldA) [Mass fraction] 96 % Leroy Kuns Other [facility] Other 12-20-2021 12:00-0500 Systolic blood pressure 102 mm[Hg] Leroy Kuns Other [facility] Other 09-27-2021 10:00-0500 Body height Leroy Kuns Other [facility] Other 09-27-2021 10:00-0500 Body mass index (BMI) [Ratio] 33.75 kg/m2 Leroy Kuns Other [facility] Other 09-27-2021 10:00-0500 Body weight 100.7 kg Leroy Kuns Other [facility] Other 09-27-2021 10:00-0500 Diastolic blood pressure 82 mm[Hg] Leroy Kuns Other [facility] Other 09-27-2021 10:00-0500 Respiratory rate 16 /min Leroy Kuns Other [facility] Other 09-27-2021 10:00-0500 SaO2% (BldA) [Mass fraction] 94 % Leroy Kuns Other [facility] Other 09-27-2021 10:00-0500 Systolic blood pressure 128 mm[Hg] Leroy Kuns Other [facility] Other Encounters Encounter Date Encounter Type Care Provider Facility Start: 11-21-2023 End: 11-21-2023 ambulatory Leroy Kuns Facility:[facility] Start: 11-21-2023 End: 11-21-2023 ambulatory DO Leroy Kuns Work Phone: [facility] Work Phone: Start: 11-21-2023 End: 11-21-2023 Patient encounter procedure DO Leroy Kuns Work Phone: [facility] [address] Work Phone: Start: 11-01-2023 End: 11-01-2023 ambulatory Leroy Kuns Other [facility] Other Start: 11-01-2023 Telephone encounter Leroy Kuns [facility] Start: 10-18-2023 End: 10-18-2023 Patient encounter procedure DO Leroy Kuns Work Phone: [facility] Work Phone: Start: 10-04-2023 End: 10-04-2023 ambulatory Leroy Kuns Facility:[facility] Start: 10-04-2023 End: 10-04-2023 Patient encounter procedure DO Leroy Kuns Work Phone: [facility] [place] Work Phone: Start: 10-04-2023 End: 10-04-2023 ambulatory DO Leroy Kuns Work Phone: [facility] Work Phone: Start: 10-04-2023 Office outpatient vi sit 25 minutes Leroy Kuns [facility] [place] Start: 10-04-2023 End: 10-04-2023 Patient encounter procedure DO Leroy Kuns Work Phone: [facility] Work Phone: Start: 09-26-2023 End: 09-26-2023 ambulatory Leroy Kuns Facility:[facility] Start: 09-26-2023 End: 09-26-2023 ambulatory DO Leroy Kuns Work Phone: [facility] Work Phone: Start: 09-26-2023 End: 09-26-2023 Patient encounter procedure DO Leroy Kuns Work Phone: [facility] [place] Work Phone: Start: 09-19-2023 End: 09-19-2023 ambulatory Leroy Kuns Other [facility] Other Start: 09-19-2023 Telephone encounter Leroy Kuns [facility] [place] Start: 04-30-2023 End: 04-30-2023 ambulatory Leroy Kuns Other [facility] Other Start: 04-30-2023 Telephone encounter Leroy Kuns [facility] [place] Start: 04-06-2023 End: 04-06-2023 ambulatory Leroy Kuns Other [facility] Other Start: 04-06-2023 Telephone encounter Leroy Chuchos [facility] Start: 04-04-2023 End: 04-04-2023 Patient encounter procedure DO Leroy Kuns Work Phone: [facility] [place] Work Phone: Start: 04-04-2023 End: 04-04-2023 ambulatory DO Leroy Kuns Work Phone: [facility] Work Phone: Start: 04-04-2023 Office outpatient vi sit 25 minutes Leroy Chuchos [facility] Start: 03-26-2023 End: 03-26-2023 ambulatory Leroy Kuns Facility:[facility] Start: 03-26-2023 End: 03-26-2023 ambulatory DO Leroy Kuns Work Phone: [facility] Work Phone: Start: 03-26-2023 End: 03-26-2023 Patient encounter procedure DO Leroy Kuns Work Phone: [facility] [place] Work Phone: Start: 12-18-2022 End: 12-18-2022 ambulatory Leroy Kuns Other [facility] Other Start: 12-18-2022 Nursing evaluation o f patient and report Leroy Chuchos [facility] Start: 12-18-2022 Telephone encounter Leroy Chuchos [facility] Start: 10-04-2022 End: 10-04-2022 ambulatory Leroy Kuns Other [facility] Other Start: 10-04-2022 Annual wellness visit Leroy hilliard Other [facility] Other Start: 10-04-2022 Patient encounter procedure Leroy Kuns [facility] [place] Start: 09-12-2022 End: 09-12-2022 ambulatory DO Leroy Kuns Work Phone: [facility] Work Phone: Start: 09-12-2022 End: 09-12-2022 Patient encounter procedure DO Leroy Kuns Work Phone: [facility] [place] Start: 07-24-2022 End: 07-24-2022 ambulatory Leroy Kuns Other [facility] Other Start: 07-24-2022 Telephone encounter Leroy Kuns [facility] Start: 06-08-2022 End: 06-08-2022 ambulatory Leroy Kuns Other [facility] Other Start: 06-08-2022 Office outpatient vi sit 15 minutes Leroy Kuns [facility] Start: 03-02-2022 End: 03-02-2022 ambulatory Leroy Kuns Other [facility] Other Start: 03-02-2022 Office outpatient vi sit 15 minutes Leroy Kuns [facility] Start: 01-19-2022 End: 01-19-2022 ambulatory Leroy Kuns Other [facility] Other Start: 01-19-2022 Office outpatient vi sit 25 minutes Leroy Kuns [facility] Start: 12-29-2021 End: 12-29-2021 ambulatory Leroy Kuns Other [facility] Other Start: 12-29-2021 Office outpatient vi sit 25 minutes Leroy Kuns [facility] Start: 12-20-2021 End: 12-20-2021 ambulatory Leroy Kuns Other [facility] Other Start: 12-20-2021 Office outpatient vi sit 25 minutes Leroy Wray [facility] Start: 09-27-2021 End: 09-27-2021 ambulatory Leroy Wray Other [facility] Other Start: 09-27-2021 Annual wellness visit Leroy hilliard Other [facility] Other Start: 09-27-2021 Patient encounter procedure Leroy Wray [facility] Start: 02-24-2018 End: 02-24-2018 Ambulatory [facility] Facility:[facility] Procedures Date Procedure Procedure Detail Performing Clinician Start: 11-21-2023 CT of paranasal sinu s without contrast DO Leroy Rankincarmina Work Phone: Start: 10-04-2023 Blood culture for bacteria, including anaerobic screen DO Leroy Wray Work Phone: Screening for malign ant neoplasm of prostate Leroy Wray Other Plan of Treatment Date Care Activity Detail Author Start: 10-04-2023 Bacteria identified in Blood by Culture [facility] Thyroglobulin Ab [Un its/volume] in Serum or Plasma [facility] Thyroperoxidase Ab [ Units/volume] in Serum or Plasma [facility] Immunizations Immunization Date Immunization Notes Care Provider Esdras chang 09-06-2023 Flu Shot - Documentation Purposes Only Leroy Wray Other [facility] Other 10-04-2022 influenza, injectable, quadrivalent, contains preservative Leroy Wray Other [facility] Other 07-25-2022 COVID-19 Pfizer (bivalent) Leroy Wray Other [facility] Other 02-15-2022 COVID-19 Vaccine Moderna - Documentation Purposes Only Leroy Rankins Other [facility] Other 08-18-2021 COVID-19 Vaccine Moderna - Documentation Purposes Only Leroyeric Rankins Other [facility] Other 01-19-2021 COVID-19 Vaccine Moderna - Documentation Purposes Only Leroyeric Wray Other [facility] Other 12-22-2020 COVID-19 Vaccine Moderna - Documentation Purposes Only Leroyeric Wray Other [facility] Other NEGATED: Highlighted row has not occurred! 0 influenza, seasonal, injectable Patient Objection Leroy Kuns Other [facility] Other NEGATED: Highlighted row has not occurred! 0 pneumococcal conjugate vaccine, 13 valent Patient Objection Leroy Kuns Other [facility] Other NEGATED: Highlighted row has not occurred! 0 pneumococcal polysaccharide vaccine, 23 valent Patient Objection Leroy Kuns Other [facility] Other NEGATED: Highlighted row has not occurred! 9 influenza, seasonal, injectable Patient Objection Leroy Kuns Other [facility] Other NEGATED: Highlighted row has not occurred! 9 pneumococcal conjugate vaccine, 13 valent Patient Objection Leroy Kuns Other [facility] Other NEGATED: Highlighted row has not occurred! 9 pneumococcal polysaccharide vaccine, 23 valent Patient Objection Leroy Kuns Other [facility] Other Payers Date Payer Category Payer Private Health Insurance [id number] 2023 Self-pay [id number] 2018 Medicare [id number] Medicare Medicare [id number] Medicare Anthem MCR PF [id number] Unknown [employer] [id number] Unknown [id number] Unknown [id number] Unknown [id number] Unknown [id number] Unknown [id number] Social History Date Type Detail Facility Unknown if ever smoked [facility] Other Sex Assigned At Sex Assigned At Bir [facility] Other Start: 06-05-2019 End: 06-05-2019 Tobacco smoking status IDIS Ex-smoker (finding) [facility] Start: 1950 Sex Assigned At Male F [facility] Clinical Notes 04-26-2020 to 11-01-2023 Note Date & Type Note Facility 11-01-2023 Evaluation note Encounter Date Diagnosis Assessment Notes Oct, Osteoarthritis of lumbar spine, unspecified spinal osteoarthritis complication status (ICD-10 - M47.816) [facility] Other [id number] Evaluation note* Encounter Date Diagnosis Assessment Notes Treatment Notes Treatment Clinical Notes Sep, Hyperlipidemia (ICD-10 - E78.5) I have reviewed all recent lab results with patient today. His lipids are improving. He is tolerating the statin therapy well without any ill side effects. Liver enzymes are normal. Remainder of labs do appear to be stable to include his blood counts and chemestries. Renal function looks good. Glucose is stable Sep, Hypothyroidism (ICD-10 - E03.9) Thyroid levels are about the same as they have been, just slightly higher than normal. Thyroid antibodies were normal. Sep, Screening for prostate cancer (ICD-10 - Z12.5) Review of PSA level which was WNL, therefore, we will continue to monitor. Pt denies any urinary issues at this time. Sep, Sinus drainage (ICD-10 - J34.89) Patient does have some sinus drainage. Negative for viral illness Sep, Acute cough (ICD-10 - R05.1) Patient does have an acute cough with sinus drainage. In house testing is negative for all viral infections. I do want him to use Delsym OTC. I will also treat with antibiotic that will in addition help with the foot infection as well. Sep, Wound of foot (ICD-1 0 - S91.309A) Patient does have an open area of the left heel. 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 I am going to cover him for infection by ordering Keflex 500 mg TID for 10 days; Bactrim DS one BID for 10 days and start Mupirocin. Use that BID. Get CBC and Blood cultures X 1 today. Encourged to keep area clean and covered [facility] Other 07-10-2023 Evaluation note* Encounter Date Diagnosis Assessment Notes Treatment Notes Treatment Clinical Notes Apr, Osteoarthritis of lumbar spine, unspecified spinal osteoarthritis complication status (ICD-10 - M47.816) [facility] Other 06-14-2023 Evaluation note* Encounter Date Diagnosis Assessment Notes Treatment Notes Treatment Clinical Notes Mar, Hyperlipidemia (ICD-10 - E78.5) Review of blood work which revealed no signs of anemia, leukemia, or infection. Liver and kidney function is normal, as well as electrolytes and blood sugar. His LDL is mildly elevated at 119, which was 118 at last check. He does take the above medication regularly. He c/o mild mal Mar, Hypertension, unspecified type (ICD-10 - I10) Mar, Osteoarthritis of lumbar spine, unspecified spinal osteoarthritis complication status (ICD-10 - M47.816) Pt is to continue with the above medication and we will continue to monitor. Mar, Elevated TSH (ICD-10 - R94.6) Pt's labs reveal his TSH is elevated. I ordered the above labs to further investigate this, and educated pt on the meaning of these levels. Mar, Screening for prostate cancer (ICD-10 - Z12.5) [facility] Other 02-27-2023 Evaluation note* Encounter Date Diagnosis Assessment Notes Treatment Notes Treatment Clinical Notes Nov, Acute cough (ICD-10 - R05.1) [facility] Other 12-14-2022 Evaluation note* Encounter Date Diagnosis Assessment Notes Treatment Notes Treatment Clinical Notes Sep, Medicare annual wellness visit, initial (ICD-10 - Z00.00) Personalized health advice was given to the beneficiary including a written plan for screenings discussed and provided. Advanced care planning reviewed and/or information given as requested.The above visit was performed by TAHIRA May under direct supervision of Dr. Leroy Wray. Document reviewed and amended by provider signed below. Sep, Hyperlipidemia (ICD-10 - E78.5) Cholesterol levels have improved from last check. Patient is to continue with the above medication regimen. We will recheck again in six months. Sep, Screening for prostate cancer (ICD-10 - Z12.5) Review of PSA level which was WNL, therefore, we will continue to monitor. Pt denies any urinary issues at this time. Sep, Needs flu shot (ICD-10 - Z23) Flu shot administered in the office today. Sep, Elevated blood pressure reading (ICD-10 - R03.0) The patients blood pressure was slightly elevated upon check in. Sep, Lumbar back pain (ICD-10 - M54.50) Refill provided of the above medication. Sep, Sinus drainage (ICD-10 - J34.89) I recommend the patient us a flonase along with the cetirizine. [facility] Other 10-03-2022 Evaluation note* Encounter Date Diagnosis Assessment Notes Treatment Notes Treatment Clinical Notes Jul, Lumbar back pain (ICD-10 - M54.50) [facility] Other 08-18-2022 Evaluation note* Encounter Date Diagnosis Assessment Notes Treatment Notes Treatment Clinical Notes May, Lumbar back pain (ICD-10 - M54.50) Lumbar back pain appears to be well controlled on current medication regimen, therefore I recommend he continue as directed, a refil was provided. May, Hyperlipidemia (ICD-10 - E78.5) Pt is to continue with the above medication and continue watching their diet and increase their exercise regimen. Blood work order provided. May, Screening for prostate cancer (ICD-10 - Z12.5) [facility] Other 05-12-2022 Evaluation note* Encounter Date Diagnosis Assessment Notes Treatment Notes Treatment Clinical Notes February, Lumbar back pain (ICD-10 - M54.50) Patient appears to be doing well on the above medication. We will continue to monitor. [facility] Other 03-31-2022 Evaluation note* Encounter Date Diagnosis Assessment Notes Treatment Notes Treatment Clinical Notes Dec, Osteoarthritis of lumbar spine, unspecified spinal osteoarthritis complication status (ICD-10 - M47.816) Negative rheumatoid arthritis panal blood work resutls reviewed with the patient . X-ray imaging x-rays obtained 12/20/21 that have been reviewed noting degenerative changes. Dec, Lumbar back pain (ICD-10 - M54.50) The patient is tolerating Gabapentin well and voices some improvement between the medication and physical therapy. I recommend he increase Gabapentin as above and encourge the patient to continue physical therapy .We will continue to monitor. Dec, Polyarthralgia (ICD-10 - M25.50) As above rheumatoid panal is negative .The patient is to continue medication regimen and physical therapy, we will continue to monitor. 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 Physical Therapy recommended and ordere and I suggest he start a low dose of Gabapentin . The patient is in agreement,instruct ions , positive and negative side effects reviewed. A toradol injection offered and administered today. I will see him back in four weeks and if symptoms persist we will consider ordering an MRI. Dec, Right foot pain (ICD-10 - M79.671) Calcaneal spurs noted in the right foot upon review of xray imaging report . Dec, Tinnitus of both ear s (ICD-10 - H93.13) I recommend the patient cut back on NSAID use as this can cause tinnitus. If symptoms persist we will consider ENT . We will continue to monitor. Dec, Polyarthralgia (ICD-10 - M25.50) The patient complains of pain and stiffness in multiple joints including the shoulders , cervical spine. Blood work ordered to rule out PMR or other autonomic dysfunction. We will continue to monitor. [facility] Other 03-01-2022 Evaluation note* Encounter Date Diagnosis Assessment Notes Treatment Notes Treatment Clinical Notes Dec, Hyperlipidemia (ICD-10 - E78.5) Pt is to continue with the above medication, continue watching their diet and increase their exercise regimen. Dec, Lumbar back pain (ICD-10 - M54.50) The patient complains of back pain onset six months ago that is occuring daily . Complains of muscle spasms during the night and is having difficulty sleeping. Upon examination the patient appears to be neurologically intact with no deficits. I recommend an x-ray to rule out abnormalites and suggest he start an oral steroid. Toradol injection offered and administered today. Dec, Plantar fasciitis of right foot (ICD-10 - M72.2) Educational material provided regarding stretching exercises. The patient encoaurged to perform these on a daily basis Dec, Right foot pain (ICD-10 - M79.671) Xray imaging recommended and ordered. [facility] Other [id number] Evaluation note* Encounter Date Diagnosis Assessment Notes Treatment Notes Treatment Clinical Notes Sep, Medicare annual wellness visit, initial (ICD-10 - Z00.00) Personalized health advice was given to the beneficiary including a written plan for screenings discussed and provided. Advanced care planning reviewed and/or information given as requested. Additional counseling was provided here. The above visit was performed by Page HOFFMANN, under direct supervision of Dr. Leroy Wray. Document reviewed and amended by provider signed below. Sep, Hyperlipidemia (ICD-10 - E78.5) Review of bloodwork results with the patient .Cholesterol has increased somewhat compared to previous findings. Pt is to continue with the above medication twice a week and continue watching their diet and increase their exercise regimen. Sep, Screening for prostate cancer (ICD-10 - Z12.5) Review of PSA level which was WNL, therefore, we will continue to monitor. Pt denies any urinary issues at this time. Sep, Hyperglycemia (ICD-10 - R73.9) No indication of diabetes upon review of in house Hgb a1c results. Encouraged to watch diet and increase exercise regimen; we will continue to monitor. Sep, Osteoarthritis of lumbar spine, unspecified spinal osteoarthritis complication status (ICD-10 - M47.816) Previous lumbar x-ray was obtained in 2018. The patient complains of exacerbation after mulching leaves with a pulling sensation in the lateral right leg. Toradol injection offered and administered. The patient is to return to the office if pain persists. 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 Surgical History umblical and left ingunial kisha ia Surgical History cervical spine fusion - 4 herni ated discs Hospitalization History see surgery history [facility] Other Evaluation noteNo assessment information available [facility] Work Phone: Evaluation noteNo InformationNortBel[facility] [employer] Other Summary Purpose Family History No Family History Records Found Relationship Condition Age at Onset Recorded Date/T areltte father Malignant neoplasm of pancreas Unknown Not Specified Malignant neoplasm of breast Unknown brother Chronic obstructive pulmonary disease Unk nown Advance Directives No Advanced Directives Records Found Advance Directive Response Recorded Date/ Time Advance Directives Yes June 10, 2019 2:47pm Advance Directive Response Recorded Date/ Time Advance Directives Yes June 10, 2019 3:47pm Chief Complaint and Reason for Visit Chief Complaint E78.5 Chief Complaint Hyperlipidemia Chief Complaint Hyperlipidemia 6 Month Follow Up s91.309a Review Labs J34.89 Additional Source Comments (unrecognized sect ion and content) No Status Records FoundNo Status Records Found INFORMATION SOURCE (unrecogn ized section and content) DATE CREATED AUTHOR 04/25/2018 [facility] DATE CREATED AUTHOR AUTHOR'S ORGANIZ ATION 11/22/2023 [facility] REASON FOR VISIT (unrecogniz ed section and content) medicare wellness subMid-low right side back painf/u back painREVIEW LABS, f/u back pain6 week follow up3 month Follow up lumbar back painRefillsmedicare wellness SUB & Flu shotClinicalClinicalFLU & RSV6 month Follow up-review labs- printedclinicalRefillsClinical6 month Follow up lipids/ thyroidRefills Care Teams (unrecognized sec tion and content) Team Status: Active Member Role Status Dates Leroy Wray DO Primary Care Provider Active Team Status: Inactive Member Role Status Dates Leroy Wray DO Primary Care Provider, Attending Provi tyson Active Team Status: Inactive Member Role Status Nellie Wray DO Primary Care Provide r, Attending Provider Active Start: September 26, 2023 End: September 26, 2023 Team Status: Inactive Member Role Status Dates Leroy Wray DO Attending Provider Active Start: October 04, 2023 End: October 04, 2023 Team Status: Inactive Member Role Status Dates Leroy Wray DO Primary Care Provide r, Attending Provider Active Start: October 04, 2023 End: October 04, 2023 Team Status: Inactive Member Role Status Dates Leroy Wray DO Attending Provider Active Start: October 18, 2023 End: October 18, 2023 Team Status: Inactive Member Role Status Dates Leroy Wray , DO Primary Care Provide r, Attending Provider Active Start: November 21, 2023 End: November 21, 2023 Goals (unrecognized section and content) Goals may be documented in a n alternate section FOR RECORDS PERTAINING TO PATIENTS WHO ARE OR HAVE BEEN ENROLLED IN A CHEMICAL DEPENDENCY/SUBSTANCEABUSE PROGRAM, SOME INFORMATION MAY BE OMITTED. This clinical summary was aggregated from multiple sources. Caution should be exercised in using it in the provision of clinical care. This summary normalizes information from multiple sources, and as a consequence, information in this document may materially change the coding, format and clinical context of patient data. In addition, data may be omitted in some cases. CLINICAL DECISIONS SHOULD BE BASED ON THE PRIMARY CLINICAL RECORDS. ki work [facility]. provides no warranty or guarantee of the accuracy or completeness of information in this document.
--- NOTE | 2023-11-27 12:20 | CT_ITS ---
The [address] [address] Patient Name: CYRUS RODRIGUEZ MRN: [id number] date: 1950 Sex: M Assigned Patient Location: CARD Current Patient Location: CARD Accession/Order Number: [id number] Exam Date: 11/27/2023 12:15 Report Date: 11/27/2023 13:26 At the request of: AUTUMN MENDIOLA Procedure: CT ankle LT wo con Exam Type: CT LEFT ANKLE Exam Date and Time: 11/27/2023 12:15 PM EST Indication: 73 years old Male with pain, arthritis Comparison: Radiographs 11/07/2023 TECHNIQUE: Axial CT images of the left ankle were obtained without intravenous contrast. Coronal and sagittal reformatted images were obtained. Dose reduction techniques were achieved by using automated exposure control and/or adjustment of mA and/or kV according to patient size and/or use of iterative reconstruction technique. FINDINGS: No acute displaced fracture is evident. The ankle syndesmosis appears congruent. The midfoot is congruent. There is significant thickening of the Achilles tendon with large Achilles enthesophyte consistent with chronic high-grade tendinosis. There is also thickening with large enthesophytes as well as inferior calcaneal spur consistent with chronic plantar fasciopathy. Insertional enthesophytes are noted at the peroneus brevis insertion. Mild midfoot osteoarthritis. Nonspecific subcutaneous edema about the lower extremity. CT/CT ankle LT wo con IMPRESSION: 1. No acute osseous abnormality. 2. High-grade Achilles tendinosis with enthesophyte. 3. Chronic plantar fasciopathy with extensive enthesophytes involving the plantar fascia. 4. Enthesophytes at the peroneus brevis insertion. Electronically authenticated by: DAVID GREENE Date: 11/27/2023 13:26
--- NOTE | 2023-11-27 13:51 | CA_ITS ---
[facility] Test Date: 2023-11-27 Pat Name: CYRUS RODRIGUEZ Department: Room: - Gender: Male Limo Driver: Melissa Lopez : 1950 Requested By: AUTUMN MENDIOLA Order Number: [id number] Reading MD: FRANCISCO TA Interpretive Statements Biphasic doppler waveforms PVR waveforms with normal upstroke, amplitude and dicrotic notch. Right: - significant pressure gradient between the calf and DP cuff - normal ASHLEY Left: - significant pressure gradient between the calf and DP cuff - normal ASHLEY Impression: - elevated indices (B/L calf) consistent with calcified, noncompressible arterial leone, which may underestimate the degree of arterial disease present. - normal arterial evaluation of the lower extremities without hemodynamic impairment of the B/L lower extremities at rest, (right AHSLEY 1.27, left ASHLEY 1.12) Electronically Signed On 11-29-2023 6:58:40 EST by FRANCISCO TA
== END 2023-11-27 11:54 | disposition home or self-care (01) ==
LOC: CARD 11:56
PROVIDERS: Visit Provider Podiatrist Foot & Ankle Surgery
DX: S89.92XA Unspecified injury of left lower leg, initial encounter (principal); M19.072 Primary osteoarthritis, left ankle and foot; M76.62 Achilles tendinitis, left leg; M72.2 Plantar fascial fibromatosis; M77.32 Calcaneal spur, left foot
CPT/HCPCS: 73700; 93923